=== PATIENT | female | born 1930 | race Caucasian/White ===

== ENCOUNTER 2018-04-02 19:20 | Emergency (ER) | payer OTHER ==
[2018-04-02 19:26] VITALS: BP 187/90; PULSE 67; TEMP 97.6; BMI 19.4
[2018-04-02] MEDS ORDERED: TETRACAINE 0.5% OPHTH SOLN 2 ML BOTTLE ONE (20:06)
--- NOTE | 2018-04-02 20:13 | PDOC ---
History of Present Illness - General Chief Complaint: Eye Problem Stated Complaint: EYE PROBLEM Time Seen by Provider: 04/02/18 19:34 History Source: Patient, Family - History of Present Illness Timing/Duration: other (this am) Past History - Past Medical History Allergies/Adverse Reactions: Allergies Allergy/AdvReac Type Severity Reaction Status Date / Time codeine Allergy Severe Vomiting Verified 05/17/16 07:09 Home Medications: Ambulatory Orders Ranitidine HCl [Zantac] 150 mg PO DAILY 04/22/16 ASA - 81 mg PO DAILY 05/14/16 Bimatoprost [Lumigan] 1 drop OU HS 05/14/16 Fish Oil/Borage/Flax/Om3,6,9 1 [[place] 3-6-9 1,200 mg Softgel] 1,200 mg PO DAILY 05/14/16 L.acidoph,Paracasei, B.lactis [Probiotic] 1 each PO DAILY 05/14/16 Prednisone 20 mg PO TID 05/14/16 Vitamins A and D [Vitamin A and D] 1 each PO DAILY 05/14/16 Ramipril 2.5 mg PO ASDIR 04/02/18 Anemia: No Asthma: No Cancer: No Cardiac Disorders: No CVA: No COPD: No CHF: No DVT: No Dementia: No Diabetes: No GI Disorders: Yes (HIATAL HERNIA, DIVERTICULOSIS) Disorders: No HTN: Yes Hypercholesterolemia: No Liver Disease: No Seizures: No Thyroid Disease: No Other medical history: temporal arrteritis - Surgical History Abdominal Surgery: No Appendectomy: No Cardiac Surgery: No Cholecystectomy: No Lung Surgery: No Neurologic Surgery: No Orthopedic Surgery: No - Immunization History Immunization Up to Date: Yes - Suicide/Smoking/Psychosocial Hx Smoking History: Never smoked Have you smoked in the past 12 months: No If you are a former smoker, when did you quit?: ; smoked briefly as a teenager; none sicnce Information on smoking cessation initiated: No Hx Alcohol Use: No Drug/Substance Use Hx: No Substance Use Type: None Review of Systems - Review of Systems HEENTM: Yes: Blurred Vision, Ear Pain. No: Tearing, Ear Discharge *Physical Exam - Vital Signs Last Vital Signs Temp Pulse Resp BP Pulse Ox 97.6 F 67 20 187/90 99 04/02/18 19:23 04/02/18 19:23 04/02/18 19:23 04/02/18 19:23 04/02/18 19:23 - Physical Exam General Appearance: Yes: Appropriately Dressed. 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 to both eyes, she began having blurry vision w/ eye pain to L eye only and sensation of foreign body. No photophobia, red eye, tearing, discharge, headache, dizziness, nausea or vomiting. No trauma to the eye. Pt appears uncomfortable in ED, no conjunc erythema, tearing , discharge, fb on lid eversion or hard eye on palpation. VA: 20/40 to OD, unable to make out letters to L eye. Unable to r/o abrasion 2/2 no fluorescein in ED and unable to check pressure given no tonopen. Will c/s optho at this time. Pt declines pain control 04/02/18 20:14 Case d/w Tomy of brush maker machine who works w/ patient's brush maker machine, Dr. Anne. States sxs less likely secondary to increased pressure alyssa given fb sensation aspect and more likely secondary to new refresh eyedrops or maybe dislodgment of punctate plugs. Recommending lubricating ointment at night, for example, GenTeal, and for patient to see her brush maker machine in a.m. Pt states GenTeal is [id number] and she can purchase this on her own. Discharged in stable condition w/ family *DC/Admit/Observation/Transfer Diagnosis at time of Disposition: Eye pain Qualifiers: Laterality: left Qualified Code(s): H57.12 - Ocular pain, left eye - Discharge Dispostion Disposition: HOME Condition at time of disposition: Good - Referrals Referrals: Tj Good MD [Primary Care Provider] - - Patient Instructions Additional Instructions: Your case wass discussed with Dr. Calle of ophthalmology who states symptoms might be due to refresh use or maybe dislodgment of your punctal plug. Recommends that you use a lubricating ointment such as GenTeal. Please use ointment right before bedtime. Please follow-up with your brush maker machine in the a.m. - Post Discharge Activity
== END 2018-04-02 20:24 | disposition home or self-care (01) ==
LOC: JERFT 19:20
DX: H57.12 Ocular pain, left eye (principal); M31.5 Giant cell arteritis with polymyalgia rheumatica; K21.9 Gastro-esophageal reflux disease without esophagitis; Z98.42 Cataract extraction status, left eye; Z98.41 Cataract extraction status, right eye
CPT/HCPCS: 99281-25

== ENCOUNTER 2019-01-24 11:45 | Inpatient (IN) | payer OTHER ==
--- NOTE | 2019-01-24 12:12 | PDOC ---
History of Present Illness - History of Present Illness Initial Comments: 01/24/19 15:17 The patient is a 88 year old female, with a significant past medical history of chronic constipation, GERD, Hiatal Hernia, Peptic Ulcer Disease, Anemia, Osteoarthritis, who presents to the emergency department via ems s/p syncopal episode sustaining injury to her face. 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 She states she was in the store while her car was being inspected when she developed a sudden onset of generalized weakness followed by syncope. She reports pain to her left hand, as well as pain and bleeding to her face. She denies any lower extremity pain. She denies any other complaints. The patient denies chest pain, shortness of breath, headache and dizziness. The patient denies fever, chills, nausea, vomit, diarrhea and constipation. The patient denies dysuria, frequency, urgency and hematuria. Allergies: codeine PCP - Dr. Good Cards: Dr. De Luna <Lucia Santiago - Last Filed: 01/24/19 15:17> - General History Source: Patient Exam Limitations: No Limitations <Areli Ocampo - Last Filed: 01/26/19 17:32> - General Chief Complaint: Syncope/Near Syncope Stated Complaint: SYNCOPE, FALL Time Seen by Provider: 01/24/19 12:12 Past History <Lucia Santiago - Last Filed: 01/24/19 15:17> - Past Medical History Anemia: No Asthma: No Cancer: No Cardiac Disorders: No CVA: No COPD: No CHF: No DVT: No Dementia: No Diabetes: No GI Disorders: Yes (HIATAL HERNIA, DIVERTICULOSIS) Disorders: No HTN: Yes Hypercholesterolemia: No Liver Disease: No Seizures: No Thyroid Disease: No - Surgical History Abdominal Surgery: No Appendectomy: No Cardiac Surgery: No Cholecystectomy: No Lung Surgery: No Neurologic Surgery: No Orthopedic Surgery: No - Immunization History Immunization Up to Date: Yes - Suicide/Smoking/Psychosocial Hx Smoking History: Unknown if ever smoked Have you smoked in the past 12 months: No If you are a former smoker, when did you quit?: ; smoked briefly as a teenager; none sicnce Hx Alcohol Use: No Drug/Substance Use Hx: No Substance Use Type: None <Areli Ocampo - Last Filed: 01/26/19 17:32> - Past Medical History Allergies/Adverse Reactions: Allergies Allergy/AdvReac Type Severity Reaction Status Date / Time codeine Allergy Severe Vomiting Verified 05/17/16 07:09 Home Medications: Ambulatory Orders Ramipril 2.5 mg PO ASDIR 04/02/18 Amlodipine Besylate [Norvasc -] 5 mg PO DAILY #30 tablet MDD 1 01/26/19 Brimonidine Tartrate [Alphagan 0.2% -] 1 drop OD BID #1 bot 01/26/19 Docusate Sodium [Colace -] 100 mg PO HS capsule 01/26/19 Pantoprazole Sodium [Protonix -] 40 mg PO DAILY tablet.ec 01/26/19 predniSONE [Deltasone -] 4 mg PO DAILY tablet 01/26/19 Review of Systems - Review of Systems Able to Perform ROS?: Yes Comments:: 01/24/19 15:18 CONSTITUTIONAL: Absent: fever, no chills, no fatigue EYES: Absent: visual changes ENT: (+) facial pain and bleeding. Absent: ear pain, no sore throat CARDIOVASCULAR: Absent: chest pain, no palpitations RESPIRATORY: Absent: cough, no SOB GASTROINTESTINAL: Absent: abdominal pain, no nausea, no vomiting, no constipation, no diarrhea GENITOURINARY: Absent: dysuria, no frequency, no hematuria MUSCULOSKELETAL: (+) left hand pain. Absent: back pain, no arthralgia, no myalgia SKIN: Absent: rash NEURO: Absent: headache <Lucia Santiago - Last Filed: 01/24/19 15:17> *Physical Exam - Vital Signs Last Vital Signs Temp Pulse Resp BP Pulse Ox 97.4 F L 65 20 223/103 H 99 01/24/19 11:47 01/24/19 11:47 01/24/19 11:47 01/24/19 11:47 01/24/19 11:47 - Physical Exam Comments: 01/24/19 15:18 GENERAL: The patient is in no acute distress. HEAD: (+) Facial Trauma. 3cm stellate skin tear to right lateral orbit. 8 mm abrasion to right forehead. 1 cm laceration to nasal bridge with ecchymosis and clear nasal deformity. 1cm lip laceration. EYES: PERRLA, EOMI, sclera anicteric, conjunctiva clear. ENT: (+) dried blood in nares. Ears normal, nares patent, oropharynx clear without exudates. Moist mucous membranes. NECK: Normal range of motion, supple without lymphadenopathy, JVD, or masses. LUNGS: Breath sounds equal, clear to auscultation bilaterally. No wheezes, and no crackles. HEART:Regular rate and rhythm, normal S1 and S2 without murmur, rub or gallop. ABDOMEN: Soft, nontender, normoactive bowel sounds. No guarding, no rebound. No masses palpable. EXTREMITIES: Normal range of motion, no edema. No clubbing or cyanosis. No erythema, or tenderness. NEUROLOGICAL: Cranial nerves II through XII grossly intact. Normal speech. No focal neurological deficits. MUSCULOSKELETAL: Back non-tender to palpation, no CVA tenderness SKIN: Warm, Dry, normal turgor, no rashes or lesions noted. <Lucia Santiago - Last Filed: 01/24/19 15:17> - Vital Signs Last Vital Signs Temp Pulse Resp BP Pulse Ox 97.4 F L 65 20 223/103 H 99 01/24/19 11:47 01/24/19 11:47 01/24/19 11:47 01/24/19 11:47 01/24/19 11:47 <Areli Ocampo - Last Filed: 01/26/19 17:32> ED Treatment Course - LABORATORY CBC & Chemistry Diagram: 01/24/19 13:00 01/24/19 13:00 - ADDITIONAL ORDERS Additional order review: Laboratory Results 01/24/19 01/24/19 01/24/19 13:00 13:00 13:00 PT with INR 11.60 INR 0.98 PTT (Actin FS) 31.9 Sodium 137 Potassium 4.0 Chloride 104 Carbon Dioxide 27 Anion Gap 7 L BUN 21 H Creatinine 0.9 Creat Clearance w eGFR 59.37 Random Glucose 77 Calcium 9.0 Magnesium 2.2 Total Bilirubin 0.6 AST 47 H ALT 35 Alkaline Phosphatase 64 Creatine Kinase 253 H Creatine Kinase Index 1.3 CK-MB (CK-2) 3.3 Troponin I < 0.02 Total Protein 7.5 Albumin 3.7 Blood Type O POSITIVE Antibody Screen Negative 01/24/19 13:00 RBC 4.41 MCV 96.1 H MCHC 33.2 RDW 15.5 D MPV 9.1 D Neutrophils % 65.8 Lymphocytes % 21.5 Monocytes % 8.3 Eosinophils % 3.2 D Basophils % 1.2 - Medications Given in the ED: ED Medications Discontinued Medications Generic Name Dose Route Start Last Admin Trade Name Henrietta PRN Reason Stop Dose Admin Acetaminophen 1,000 mg 01/24/19 12:15 01/24/19 13:28 Ofirmev Injection - IVPB 01/24/19 12:16 1,000 mg ONCE ONE Administration Diphtheria/Tetanus/Acell Pertussis 0.5 ml 01/24/19 12:14 01/24/19 13:29 Boostrix - IM 01/24/19 12:15 0.5 ml .ONCE ONE Administration Labetalol HCl 10 mg 01/24/19 12:15 01/24/19 13:29 Normodyne Injection - IVPUSH 01/24/19 12:16 10 mg ONCE ONE Administration <Lucia Santiago - Last Filed: 01/24/19 15:17> - LABORATORY CBC & Chemistry Diagram: 01/25/19 05:30 01/26/19 05:30 <Areli Ocampo - Last Filed: 01/26/19 17:32> Medical Decision Making - Medical Decision Making 01/24/19 15:[address] Patrick Gusman (Plastics) was called and the office staff assured me Dr. Gusman can see the patient in the hospital tomorrow morning. <Lucia Santiago - Last Filed: 01/24/19 15:17> - Critical Care Time Total Critical Care Time (minutes): 60 Critical Care Statement: The care of this patient involved high complexity decision making to prevent further life threatening deterioration of the patient 's condition and/or to evaluate & treat vital organ system(s) failure or risk of failure. - Medical Decision Making 01/24/19 12:34 EKG - NSR rate of 67 bpm, L axis deviation, no st elevation or depression, t waves upright 01/24/19 12:44 88 yo F s/p syncopal episode with facial trauma Will do: Labs Trop EKG Cardiac monitoring CT head, cervical spine, facial bones Will do xrays chest, hip, left hand BP severely elevated Will start by giving Labetolol 10mg IV Will re assess 01/24/19 13:58 Laboratory Tests 01/24/19 01/24/19 13:00 13:00 WBC 9.8 Hgb 14.1 Hct 42.4 D Plt Count 250 D INR 0.98 01/24/19 14:02 01/24/19 15:25 Laboratory Tests 01/24/19 13:00 Sodium 137 Potassium 4.0 Chloride 104 Carbon Dioxide 27 BUN 21 H Creatinine 0.9 Random Glucose 77 Creatine Kinase 253 H Creatine Kinase Index 1.3 CK-MB (CK-2) 3.3 Troponin I < 0.02 CT head: no intracranial hemorrhage CT facial bones: Nasal bone fracture with swelling CT cervical spine: no fractures Boostrix given Cervical collar removed Tylenol for pain Call placed to [facility] facial trauma attending - Recommended telling patient to AVOID blowing her nose, Ice to the area, head elevation, benadryl for congestion Call placed to Dr Gusman He will see this patient in house tomorrow AM Will admit to Dr Good service Dr Rodrigo massey (cardiology) 01/24/19 16:10 Pt was urinating and syncopized Fluids ordered PETTY Guzman requesting ICU (as pt had a recurrent pre-syncopal episode in the ER) ICU residents called for consultation Additional history obtained from pt daughters Pt recently returned from [place] Will CTA splint placed on left hand (prelim hand xray read as negative but pt continues to complain of pain) Clinical impression: Likely vasovagal syncope, initial presentation Facial trauma, initial presentation Nasal bone fracture, initial presentation Left hand injury, initial presentation <Areli Ocampo - Last Filed: 01/26/19 17:32> *DC/Admit/Observation/Transfer - Attestations Scribe Attestion: 01/24/19 15:19 Documentation prepared by Lucia Santiago, acting as medical resident for Areli Ocampo MD <Lucia Santiago - Last Filed: 01/24/19 15:17> - Discharge Dispostion Decision to Admit order: Yes <Areli cOampo - Last Filed: 01/26/19 17:32> Diagnosis at time of Disposition: Syncope and collapse, Hypertensive urgency Facial trauma Qualifiers: Encounter type: initial encounter Qualified Code(s): S09.93XA - Unspecified injury of face, initial encounter - Discharge Dispostion Disposition: HOME Condition at time of disposition: Stable
[2019-01-24] MEDS ORDERED: DIPHTH,PERTUSS(ACELL),TET 0.5 ML DISP.SYRIN IM ONE ×2 (12:14→13:19)
[2019-01-24] MEDS ORDERED: ACETAMINOPHEN 1000 MG/100 ML VIAL (NON FORMULARY) IVPB ONE (12:15)
[2019-01-24] MEDS ORDERED: LABETALOL HCL 5 MG/1 ML (100MG/20 ML VIAL) IVPUSH ONE (12:15)
[2019-01-24] MEDS ORDERED: LABETALOL HCL 5 MG/1 ML (200MG/40ML VIAL) IVPB ONE (13:18)
[2019-01-24] MEDS ORDERED: ACETAMINOPHEN INJECTION 100 ML IVPB ONE (13:18)
[2019-01-24 13:35] LABS: BASO % 1.2 % (0-2.0); EOS % 3.2 % (0-4.5); HEMATOCRIT 42.4 % (32.4-45.2); HEMOGLOBIN 14.1 GM/dL (10.7-15.3); LYMPH % 21.5 % (8-40); MCH 31.9 pg (25.7-33.7); MCHC 33.2 g/dl (32.0-36.0); MEAN CELL VOLUME 96.1 fl (80-96); MEAN PLT VOLUME 9.1 fl (7.5-11.1); MONO % 8.3 % (3.8-10.2); NEUT % 65.8 % (42.8-82.8); PLATELET COUNT 250 K/MM3 (134-434); RBC 4.41 M/mm3 (3.60-5.2); RDW 15.5 % (11.6-15.6); WHITE BLOOD COUNT 9.8 K/mm3 (4.0-10.0)
[2019-01-24 13:49] LABS: INR 0.98 (0.83-1.09); PROTHROMBIN TIME (PATIENT) 11.6 SEC (9.7-13.0)
[2019-01-24 13:51] LABS: ACTIVATED PTT 31.9 SECONDS (25.2-36.5)
[2019-01-24 14:02] LABS: ALBUMIN 3.7 g/dl (3.4-5.0); ALK PHOS 64 U/L (45-117); ANION GAP 7 MMOL/L (8-16); BILIRUBIN,TOTAL 0.6 mg/dL (0.2-1); BLOOD UREA NITROGEN 21 mg/dL (7-18); CHLORIDE 104 mmol/L (98-107); CO2 27 mmol/L (21-32); CREATININE 0.9 mg/dL (0.55-1.3); GLUCOSE,RANDOM 77 mg/dL (74-106); MAGNESIUM 2.2 mg/dL (1.8-2.4); SGOT/AST 47 U/L (15-37); SGPT/ALT 35 U/L (13-61); SODIUM 137 mmol/L (136-145); TOT PROT 7.5 g/dl (6.4-8.2)
--- NOTE | 2019-01-24 16:04 | CON.CARD ---
Cardiology Consult (text) - Consultation Consultation Note: cc: syncope hpi: 88 f hx htn, hld, pmr, here with syncope. Pt was standing today at [employer] and began to feel weak and fainted and fell to ground bumping her head/face. No cp, sob palp pnd orthopnea le edema. No hx syncope. Just got back from [place] trip, very jet-lagged, didnt eat/drink much this AM. Sees dr ibrahim for cardio. pmh: per hpi psh: nc social:no tob fam: no premature cad, scd ros: per hpi; facial pain s/p injury; occasional joint pain; all others normal meds: Ambulatory Orders Ranitidine HCl [Zantac] 150 mg PO DAILY 04/22/16 ASA - 81 mg PO DAILY 05/14/16 Bimatoprost [Lumigan] 1 drop OU HS 05/14/16 Fish Oil/Borage/Flax/Om3,6,9 1 [[place] 3-6-9 1,200 mg Softgel] 1,200 mg PO DAILY 05/14/16 L.acidoph,Paracasei, B.lactis [Probiotic] 1 each PO DAILY 05/14/16 Prednisone 20 mg PO TID 05/14/16 Vitamins A and D [Vitamin A and D] 1 each PO DAILY 05/14/16 Ramipril 2.5 mg PO ASDIR 04/02/18 pe: Vital Signs Period Temp Pulse Resp BP Sys/Huff Pulse Ox Last 24 Hr 97.4 F 65 20 223/103 99 nad no jvd rrr s1s2 no mrg cta bl nl eff aaox3 no le e/c/c abd nt nd pos bs no jaundice diaphoresis pos dp pt no carotid bruits Laboratory Last Values WBC 9.8 K/mm3 (4.0-10.0) 01/24/19 13:00 RBC 4.41 M/mm3 (3.60-5.2) 01/24/19 13:00 Hgb 14.1 GM/dL (10.7-15.3) 01/24/19 13:00 Hct 42.4 % (32.4-45.2) D 01/24/19 13:00 MCV 96.1 fl (80-96) H 01/24/19 13:00 MCH 31.9 pg (25.7-33.7) D 01/24/19 13:00 MCHC 33.2 g/dl (32.0-36.0) 01/24/19 13:00 RDW 15.5 % (11.6-15.6) D 01/24/19 13:00 Plt Count 250 K/MM3 (134-434) D 01/24/19 13:00 MPV 9.1 fl (7.5-11.1) D 01/24/19 13:00 Absolute Neuts (auto) 6.4 K/mm3 (1.5-8.0) 01/24/19 13:00 Neutrophils % 65.8 % (42.8-82.8) 01/24/19 13:00 Lymphocytes % 21.5 % (8-40) 01/24/19 13:00 Monocytes % 8.3 % (3.8-10.2) 01/24/19 13:00 Eosinophils % 3.2 % (0-4.5) D 01/24/19 13:00 Basophils % 1.2 % (0-2.0) 01/24/19 13:00 Nucleated RBC % 0 % (0-0) 01/24/19 13:00 PT with INR 11.60 SEC (9.7-13.0) 01/24/19 13:00 INR 0.98 (0.83-1.09) 01/24/19 13:00 PTT (Actin FS) 31.9 SECONDS (25.2-36.5) 01/24/19 13:00 Sodium 137 mmol/L (136-145) 01/24/19 13:00 Potassium 4.0 mmol/L (3.5-5.1) 01/24/19 13:00 Chloride 104 mmol/L (98-107) 01/24/19 13:00 Carbon Dioxide 27 mmol/L (21-32) 01/24/19 13:00 Anion Gap 7 MMOL/L (8-16) L 01/24/19 13:00 BUN 21 mg/dL (7-18) H 01/24/19 13:00 Creatinine 0.9 mg/dL (0.55-1.3) 01/24/19 13:00 Creat Clearance w eGFR 59.37 (>60) 01/24/19 13:00 Random Glucose 77 mg/dL (74-106) 01/24/19 13:00 Calcium 9.0 mg/dL (8.5-10.1) 01/24/19 13:00 Magnesium 2.2 mg/dL (1.8-2.4) 01/24/19 13:00 Total Bilirubin 0.6 mg/dL (0.2-1) 01/24/19 13:00 AST 47 U/L (15-37) H 01/24/19 13:00 ALT 35 U/L (13-61) 01/24/19 13:00 Alkaline Phosphatase 64 U/L (45-117) 01/24/19 13:00 Creatine Kinase 253 U/L (26-192) H 01/24/19 13:00 Creatine Kinase Index 1.3 % (0.0-5.0) 01/24/19 13:00 CK-MB (CK-2) 3.3 ng/mL (0.5-3.6) 01/24/19 13:00 Troponin I < 0.02 ng/ml (0.00-0.05) 01/24/19 13:00 Total Protein 7.5 g/dl (6.4-8.2) 01/24/19 13:00 Albumin 3.7 g/dl (3.4-5.0) 01/24/19 13:00 Blood Type O POSITIVE 01/24/19 13:00 Antibody Screen Negative 01/24/19 13:00 ecg: sr, nl intervals, no ischemic changes echo 08/2017: nl lv/rv, mild ar mibi 2011: no ischemia a/p: 88 f hx htn, hld, pmr, here with syncope. syncope: -seems vasovagal -no signs acs, chf, arrhythmia -check echo, carotids, ortho vitals -monitor on tele htn: -elevated in setting of facial trauma but was normal at office visit earlier today. likely related to acute pain/injury now. monitor on home ramipril for now. hld: -stable, on omega3 at home
[2019-01-24] MEDS ORDERED: SODIUM CHLORIDE 1,000 ML IV STA (16:08)
[2019-01-24] MEDS ORDERED: SODIUM CHLORIDE 250 ML IV STA (16:26)
--- NOTE | 2019-01-24 17:30 | HP ---
Admitting History and Physical - Primary Care Physician PCP: Tj Good - Admission Chief Complaint: Syncopal Episode History of Present Illness: Patient is an 88 y/o female with past medical history of HTN, HLD. Patient was brought to ER after having syncopal episode in public. Patient was at [facility] when all of a sudden she felt lightheaded and weak, she fainted and fell to ground. Patient did hit her head and face. Patient states she just came back from [place] recently and has been feeling jet-lagged since her return. On presentation in ER Hypertensive with BP 223/103, received Labetolol IVP and went down to 146/74. EKG is NSR with possible L atrial enlargement, troponin neg. In ER patient had syncopal episode lasting few seconds while using bed cummins. 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 No: AFIB, CHF Gastrointestinal: Yes: Constipation, GERD, Hiatal Hernia, Irritable Bowel Disease, Peptic Ulcer Disease Heme/Onc: Yes: Anemia Musculoskeletal: Yes: Osteoarthritis - Past Surgical History Past Surgical History: Yes: Colonoscopy, Upper Endoscopy (2014-colonoscopy and EGD- hiatal hernia and 4 polyps removed) - Smoking History Smoking history: Unknown if ever smoked Have you smoked in the past 12 months: No If you are a former smoker, when did you quit?: ; smoked briefly as a teenager; none sicnce - Alcohol/Substance Use Hx Alcohol Use: No - Social History Usual Living Arrangement: Yes: Alone ADL: Independent History of Recent Travel: No Home Medications - Allergies Allergies/Adverse Reactions: Allergies Allergy/AdvReac Type Severity Reaction Status Date / Time codeine Allergy Severe Vomiting Verified 05/17/16 07:09 - Home Medications Home Medications: Ambulatory Orders Ranitidine HCl [Zantac] 150 mg PO DAILY 04/22/16 ASA - 81 mg PO DAILY 05/14/16 Bimatoprost [Lumigan] 1 drop OU HS 05/14/16 Fish Oil/Borage/Flax/Om3,6,9 1 [[place] 3-6-9 1,200 mg Softgel] 1,200 mg PO DAILY 05/14/16 L.acidoph,Paracasei, B.lactis [Probiotic] 1 each PO DAILY 05/14/16 Prednisone 20 mg PO TID 05/14/16 Vitamins A and D [Vitamin A and D] 1 each PO DAILY 05/14/16 Ramipril 2.5 mg PO ASDIR 04/02/18 Family Disease History - Family Disease History Family Disease History: CA: Father (prostate ca), Mother ("old age leukemia"- likely CLL), Brother (lymphoma) Review of Systems - Review of Systems Constitutional: reports: Weakness Eyes: reports: No Symptoms HENT: reports: Other (facial pain) Neck: reports: No Symptoms Cardiovascular: reports: Other (dizziness) Respiratory: reports: No Symptoms Gastrointestinal: reports: No Symptoms Genitourinary: reports: No Symptoms Breasts: reports: No Symptoms Reported Musculoskeletal: reports: No Symptoms Integumentary: reports: Bruising (Face), Wound (nasal bridge R side of eye) Neurological: reports: Dizziness Endocrine: reports: No Symptoms Hematology/Lymphatic: reports: No Symptoms Psychiatric: reports: No Symptoms Physical Examination Vital Signs: Vital Signs Temperature 97.4 F L 01/24/19 11:47 Pulse Rate 82 01/24/19 16:14 Respiratory Rate 16 01/24/19 13:45 Blood Pressure 146/74 01/24/19 16:14 O2 Sat by Pulse Oximetry (%) 99 01/24/19 11:47 Constitutional: Yes: No Distress, Calm Eyes: Yes: Conjunctiva Clear Neck: Yes: Supple Cardiovascular: Yes: Bradycardia Respiratory: Yes: Regular, CTA Bilaterally Gastrointestinal: Yes: Normal Bowel Sounds, Soft Musculoskeletal: Yes: Muscle Weakness Extremities: Yes: WNL Edema: No Integumentary: Yes: Other (Ecchymosis to B/L periorbital area abrasion to R side of eye sutures noted to nasal bridge edema and ecchymosis to R upper lip) Wound/Incision: Yes: Sutures Intact, Open to air Neurological: Yes: Alert, Oriented Psychiatric: Yes: Alert, Oriented Labs: CBC, BMP 01/24/19 13:00 01/24/19 13:00 Imaging - Results Chest X-ray: Report Reviewed EKG: Report Reviewed Problem List - Problems (1) Facial trauma Assessment/Plan: -Plastic consult placed -pain management -neuro checks -fall precaution -Facial CTA shows R nasal bone fracture are seen with soft tissue swelling, R sided emphysematous changes, R sided facial periorbital soft tissue swelling extending to R frontal region Code(s): S09.93XA - UNSPECIFIED INJURY OF FACE, INITIAL ENCOUNTER Qualifiers: Encounter type: initial encounter Qualified Code(s): S09.93XA - Unspecified injury of face, initial encounter (2) Syncope and collapse Assessment/Plan: -cardio on board -admit to tele for cardiac monitoring -pending Echo, Carotid US, Chest CTA -neuro checks -fall precautions -IV hydration Code(s): R55 - SYNCOPE AND COLLAPSE Assessment/Plan see problem list dvt ppx
--- NOTE | 2019-01-24 17:44 | CONSULT ---
Consultation: Requesting Provider: PETTY Drake Consult Request: We have been asked to medically evaluate this patient for a syncopal episode. History of Present Illness: 88 y/o female presenting to [facility] ER after a syncopal episode [place] a gas station. Pt states she was standing unassisted when she suddenly felt lightheaded and dizzy. She fell face forward onto the ground striking her face. She does not recall the fall, but remembers people coming over to assist her. She did not try and ambulate afterward. Denies chest pain, palpitations, SOB, nausea/ vomiting or retrograde/anterograde amnesia. Noted pain and bleeding from face. EMS activated. Pt was placed in a c-collar and transported to the ED. Earlier in the morning, the pt was evaluated at her cardiologists clinic and reportedly told everything was normal. She then left the house again without eating or taking her daily medication thinking she would quickly have her car inspected. Pts adult daughters present at the bedside, and report the pt had a similar episode approx. 5 years ago while on vacation in [place]. Similarly, she had not been drinking or eating while [place] time on the beach. She was evaluated at a medical facility and diagnosed with dehydration. Afterward, the pt followed up with a neurologist, Dr. Ayala, who reportedly told her everything was normal. Of note, the pt returned from [place] on Tuesday (22 January 2019) from a multi week trip. In normal health while abroad. Wore compression stockings on plane. Denies calf pain or swelling. Denies SOB or chest pain. Denies personal or familial history of blood clots or bleeding disorders. At the time of this interview, the pt was complaining of pain and bruising to her face, generalized pain to the posterior aspect of her neck, and to her left hand. ED Course: - Second syncopal episode in ED witnessed by daughters. States pts face became glazed and she lost muscle tone for less than 1 minute while voiding on a bed cummins. No further trauma. - Facial CT revealed right nasal bone fractures with soft tissue swelling, right sided emphysematous changes. Soft tissue swelling was also noted to partially obscure the anterior nasal passages. ED Attending discussed the fracture with of the trauma service at [facility]. Transfer was not recommended. Dr. Gusman of plastics service was consulted and will evaluate the pt tomorrow. - Facial lacerations repaired with sutures. - Head and C-spine unremarkable for acute fracture or intracranial injury. - EKG unremarkable for ischemic changes. Initial troponin not elevated. - Evaluated by Dr. Shepard who recommended admission to telemetry for further workup. Suspected likely vasovagal episode. PCP: Dr. Florentino Kaiser Hx: - Travel: [place], returned 22 January 2019 - Tobacco: Denies - EtOH: Denies - Street Drugs: Denies Medical Hx: - Polymyalgia rheumatica, managed with Prednisone 3.5mg daily, discontinued Methotrexate approx. 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 - HTN Surgical Hx: - Pt denies past surgical history Review of Systems: In addition to that documented in the HPI above, the additional ROS was obtained : Constitutional: Denies fevers, chills, or recent illness Head: Denies acute vision or hearing changes, headaches ENMT: Denies sore throat, trouble swallowing, tongue biting CV: Denies chest pain, palpitations Resp: Denies SOB GI: Denies vomiting, abdominal pain, diarrhea, or bloody stools : Denies dysuria, increased urinary frequency, hematuria, or acute urinary incontinence MSK: Per HPI Skin: Denies new rashes Neuro: Denies new numbness or tingling or weakness Endocrine: Denies polyuria Heme: Denies bleeding or bruising Objective: Vital Signs - 24 hr 01/24/19 01/24/19 01/24/19 11:47 13:45 16:14 Temperature 97.4 F L Pulse Rate 65 Pulse Rate [ 82 Right side Supine] Respiratory 20 16 Rate Blood Pressure 223/103 H Blood Pressure 146/74 [Right side Supine] O2 Sat by Pulse 99 Oximetry (%) Physical Exam: Constitutional: Well-developed, well-nourished, nontoxic elderly adult female in no acute distress or obvious discomfort. Found semi-fowlers on hospital bed. Alert and oriented x4. Answered all questions appropriately and completely. Speech was non-labored, non-pressured. Head: Normocephalic. Lacerations to right orbit, lip, and nose sutured close. Nasal deformity. Ecchymosis to nose and right infraorbital facial region. Eyes: Pupils 2mm and PERRL bilaterally. Left lateral nystagmus. No vertical nystagmus. EOMI and nonpainful. Sclerae white. Conjunctiva moist and not injected. Ears: Hearing grossly intact. Nose: No nasal discharge. Throat: Oral cavity and pharynx normal. No inflammation, swelling, exudate, or lesions. Teeth and gingiva in good general condition. Neck: Supple, trachea is midline. Diffuse pain to posterior cervical neck without step off. Able to rotate laterally R and L. Cardiovascular / Chest: Regular rate and regular rhythm. No murmur, rubs, clicks, or gallops. Peripheral pulses: radial pulses full. No anterior chest wall pain. No pretibial edema. Respiratory: Breathing unlabored. Equal chest rise and fall. Clear to auscultation bilaterally. No stridor, no wheezing, no rhonchi. Gastrointestinal: abdomen is soft, non-tender, non-distended. No pulsatile masses. No overlying skin lesions or obvious signs of trauma. Neuro: Alert and oriented. Moving all four extremities spontaneously. No focal deficits. Cranial nerves intact. Sensation to all four extremities intact. Upper and lower extremities: proximal and distal strength 5/5. Farm Operator strength 5/ 5 - equal and symmetric. Plantar flexion and dorsiflexion 5/5. Skin: Warm and dry. MSK: Generalized pain to left thenar eminence without bruising or obvious deformity. Pelvis stable. Psych: Affect: appropriate. Mood: normal. Laboratory Results - last 24 hr 01/24/19 01/24/19 01/24/19 13:00 13:00 13:00 WBC 9.8 RBC 4.41 Hgb 14.1 Hct 42.4 D MCV 96.1 H MCH 31.9 D MCHC 33.2 RDW 15.5 D Plt Count 250 D MPV 9.1 D Absolute Neuts (auto) 6.4 Neutrophils % 65.8 Lymphocytes % 21.5 Monocytes % 8.3 Eosinophils % 3.2 D Basophils % 1.2 Nucleated RBC % 0 PT with INR 11.60 INR 0.98 PTT (Actin FS) 31.9 Sodium 137 Potassium 4.0 Chloride 104 Carbon Dioxide 27 Anion Gap 7 L BUN 21 H Creatinine 0.9 Creat Clearance w eGFR 59.37 Random Glucose 77 Calcium 9.0 Magnesium 2.2 Total Bilirubin 0.6 AST 47 H ALT 35 Alkaline Phosphatase 64 Creatine Kinase 253 H Creatine Kinase Index 1.3 CK-MB (CK-2) 3.3 Troponin I < 0.02 Total Protein 7.5 Albumin 3.7 Blood Type Antibody Screen 01/24/19 13:00 WBC RBC Hgb Hct MCV MCH MCHC RDW Plt Count MPV Absolute Neuts (auto) Neutrophils % Lymphocytes % Monocytes % Eosinophils % Basophils % Nucleated RBC % PT with INR INR PTT (Actin FS) Sodium Potassium Chloride Carbon Dioxide Anion Gap BUN Creatinine Creat Clearance w eGFR Random Glucose Calcium Magnesium Total Bilirubin AST ALT Alkaline Phosphatase Creatine Kinase Creatine Kinase Index CK-MB (CK-2) Troponin I Total Protein Albumin Blood Type O POSITIVE Antibody Screen Negative Active Medications Generic Name Dose Route Start Last Admin Trade Name Freq PRN Reason Stop Dose Admin Heparin Sodium (Porcine) 5,000 unit 01/24/19 22:00 Heparin - SQ BID MITCH Sodium Chloride 1,000 mls @ 100 mls/hr 01/24/19 16:08 Normal Saline - IV 01/25/19 02:07 ASDIR STA Pantoprazole Sodium 40 mg 01/25/19 10:00 Protonix - PO DAILY MITCH Prednisone 4 mg 01/25/19 10:00 Deltasone - PO DAILY MITCH Ramipril 2.5 mg 01/25/19 10:00 Altace - PO DAILY MITCH ASSESSMENT/PLAN: 88 year old female with Polymyalgia rheumatica, Temporal arteritis, 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 ICU Consulted for two syncopal episodes. Neuro (& Psych): - 2x witnessed syncopal episodes. Suspect likely vasovagal with prodromal symptoms in the setting of decreased PO intake and jet lag. Low suspicion for TX given EKG and negative trop. Low suspicion for seizure without tongue biting or loss of bowel/bladder. Low suspicion for arrhythmia without history of similar. Low suspicion for intracranial hemorrhage with unremarkable Head CT. Low suspicion for PE, pt to undergo CTA in ED for further evaluation. - Polymyalgia rheumatica reportedly stable on daily prednisone - Temporal arteritis reportedly stable on daily prednisone Cardiovascular: - HTN on arrival. Suspect secondary to not taking morning antihypertensive medication. - Normal Echo [place] [address] Lindsay consult note. - Further recommendations per cardiology service. Pulm / Resp: - Stable on room air. No h/o of pulmonary disease. Hematologic: - No anemia Infectious Disease: - No leukocytosis - No fever - No reported infectious symptoms Musculoskeletal: - R nasal bone fracture. No respiratory compromise. To be evaluated by plastics service tomorrow. Dispo: No indication for ICU admission at this time. Will continue to follow the pt while awaiting CTA results. Would reconsider ICU admission if PE is present. Thank you for this consultative opportunity. Ian Mosquera MD, PGY1 ICU Consult Service Visit type - Emergency Visit Emergency Visit: No - New Patient This patient is new to me today: Yes Date on this admission: 01/24/19 - Critical Care Critical Care patient: Yes Total Critical Care Time (in minutes): 38 Critical Care Statement: The care of this patient involved high complexity decision making to prevent further life threatening deterioration of the patient 's condition and/or to evaluate & treat vital organ system(s) failure or risk of failure.
[2019-01-24] MEDS ORDERED: HEPARIN NA (PORCINE) 5,000 UNITS/ML 1ML VIAL ONE (23:46)
[2019-01-24] MEDS: HEPARIN NA (PORCINE) 5,000 UNITS/ML 1ML VIAL SQ SCH (23:52)
[2019-01-25] MEDS ORDERED: ACETAMINOPHEN 325 MG TABLET (FP) PO ONE (00:52)
[2019-01-25] MEDS ORDERED: NITROGLYCERIN 2% OINTMENT - 1GM PACKET TD ONE (03:12)
[2019-01-25 05:55] LABS: BASO % 0.7 % (0-2.0); EOS % 2.7 % (0-4.5); HEMATOCRIT 36.7 % (32.4-45.2); HEMOGLOBIN 12.5 GM/dL (10.7-15.3); LYMPH % 21.1 % (8-40); MCH 32.4 pg (25.7-33.7); MEAN CELL VOLUME 95.4 fl (80-96); MEAN PLT VOLUME 8.9 fl (7.5-11.1); MONO % 8.3 % (3.8-10.2); NEUT % 67.2 % (42.8-82.8); PLATELET COUNT 212 K/MM3 (134-434); RBC 3.85 M/mm3 (3.60-5.2); RDW 14.7 % (11.6-15.6); WHITE BLOOD COUNT 9.7 K/mm3 (4.0-10.0)
[2019-01-25 06:28] LABS: N-TERMINAL BNP 159.5 pg/ml (5-450)
[2019-01-25 06:29] LABS: ALBUMIN 3.1 g/dl (3.4-5.0); ALK PHOS 56 U/L (45-117); ANION GAP 6 MMOL/L (8-16); BILIRUBIN,TOTAL 0.6 mg/dL (0.2-1); BLOOD UREA NITROGEN 14 mg/dL (7-18); CALCIUM 8.4 mg/dL (8.5-10.1); CHLORIDE 107 mmol/L (98-107); CO2 25 mmol/L (21-32); CREATININE 0.8 mg/dL (0.55-1.3); GLUCOSE,RANDOM 90 mg/dL (74-106); MAGNESIUM 1.9 mg/dL (1.8-2.4); PHOSPHOROUS 3.2 mg/dL (2.5-4.9); POTASSIUM 3.3 mmol/L (3.5-5.1); SGOT/AST 26 U/L (15-37); SGPT/ALT 26 U/L (13-61); SODIUM 139 mmol/L (136-145); TOT PROT 6.2 g/dl (6.4-8.2)
[2019-01-25] MEDS ORDERED: PT OWN MED DRAWER 7, Y5N ONE ×2 (10:26→21:08)
[2019-01-25] MEDS: PANTOPRAZOLE 40 MG TABLET (FP) PO SCH (10:33)
[2019-01-25] MEDS: ACETAMINOPHEN 500 MG TABLET (FP) PO PRN ×3 (10:33→23:26)
[2019-01-25] MEDS: amLODIPine BESYLATE 5 MG TABLET (FP) PO SCH (10:33)
[2019-01-25] MEDS: RAMIPRIL 2.5 MG CAPSULE (FP) PO SCH (10:33)
[2019-01-25] MEDS: HEPARIN NA (PORCINE) 5,000 UNITS/ML 1ML VIAL SQ SCH ×2 (11:22→21:45)
[2019-01-25] MEDS ORDERED: POTASSIUM CHLORIDE TABS 20 MEQ TABLET.ER (FP) PO ONE (11:30)
--- NOTE | 2019-01-25 11:36 | PN ---
Progress Note (short form) - Note Progress Note: s: no cp sob palps dizzy o: Vital Signs Period Temp Pulse Resp BP Sys/Huff Pulse Ox Last 24 Hr 97.1 F-98.5 F 64-88 16-20 139-223/70-103 99-100 nad no jvd rrr s1s2 no mrg cta bl nl eff aaox3 no le e/c/c abd nt nd pos bs no jaundice diaphoresis Current Medications Generic Name Dose Route Start Last Admin Trade Name Freq PRN Reason Stop Dose Admin Acetaminophen 500 mg 01/25/19 03:13 01/25/19 10:33 Tylenol - PO 500 mg Q6H PRN Administration PAIN LEVEL 1-5 Amlodipine Besylate 5 mg 01/25/19 10:00 01/25/19 10:33 Norvasc - PO 5 mg DAILY MITCH Administration Brimonidine Tartrate 1 drop 01/25/19 22:00 Alphagan 0.2% - OD BID MITCH Heparin Sodium (Porcine) 5,000 unit 01/24/19 22:00 01/25/19 11:22 Heparin - SQ 5,000 unit BID MITCH Administration Pantoprazole Sodium 40 mg 01/25/19 10:00 01/25/19 10:33 Protonix - PO 40 mg DAILY MITCH Administration Prednisone 4 mg 01/25/19 10:00 Deltasone - PO DAILY MITCH Ramipril 2.5 mg 01/25/19 10:00 01/25/19 10:33 Altace - PO 2.5 mg DAILY MITCH Administration CBC, BMP 01/25/19 05:30 01/25/19 05:30 ecg: sr, nl intervals, no ischemic changes echo 08/2017: nl lv/rv, mild ar mibi 2011: no ischemia tele: sr a/p: 88 f hx htn, hld, pmr, here with syncope. syncope: -seems vasovagal -no signs acs, chf, arrhythmia -tele benign -carotids w/o sig stenosis -echo pending, if benign then no further cardiac testing needed at this time htn: -remains elevated. cont home reyes. will add norvasc today as well. hld: -stable, on omega3 at home
--- NOTE | 2019-01-25 11:57 | PN ---
Progress Note, Physician Chief Complaint: patient was a little dizzy standing up going to bathroom today per daughter - Current Medication List Current Medications: Active Medications Acetaminophen (Tylenol -) 500 mg PO Q6H PRN PRN Reason: PAIN LEVEL 1-5 Last Admin: 01/25/19 10:33 Dose: 500 mg Amlodipine Besylate (Norvasc -) 5 mg PO DAILY [facility] Last Admin: 01/25/19 10:33 Dose: 5 mg Brimonidine Tartrate (Alphagan 0.2% -) 1 drop OD BID [facility] Heparin Sodium (Porcine) (Heparin -) 5,000 unit SQ BID [facility] Last Admin: 01/25/19 11:22 Dose: 5,000 unit Pantoprazole Sodium (Protonix -) 40 mg PO DAILY [facility] Last Admin: 01/25/19 10:33 Dose: 40 mg Prednisone (Deltasone -) 4 mg PO DAILY [facility] Ramipril (Altace -) 2.5 mg PO DAILY [facility] Last Admin: 01/25/19 10:33 Dose: 2.5 mg - Objective Vital Signs: Vital Signs Temperature 97.8 F 01/25/19 09:14 Pulse Rate 77 01/25/19 09:14 Respiratory Rate 20 01/25/19 09:14 Blood Pressure 139/76 01/25/19 09:14 O2 Sat by Pulse Oximetry (%) 99 01/25/19 09:00 Constitutional: Yes: Calm HENT: Yes: Other (facial ecchymosis and swelling noted right side skin tear noted nasal bridge stitches noted) Cardiovascular: Yes: Regular Rate and Rhythm, S1, S2 Respiratory: Yes: CTA Bilaterally Gastrointestinal: Yes: Normal Bowel Sounds, Soft Musculoskeletal: Yes: Other (left wrist and hand swelling able to flex the fingers) Edema: No Labs: CBC, BMP 01/25/19 05:30 01/25/19 05:30 INR, PTT INR 0.98 (0.83-1.09) 01/24/19 13:00 Problem List - Problems (1) Facial trauma Assessment/Plan: ortho dvt ppx Code(s): S09.93XA - UNSPECIFIED INJURY OF FACE, INITIAL ENCOUNTER Qualifiers: Encounter type: initial encounter Qualified Code(s): S09.93XA - Unspecified injury of face, initial encounter (2) Hypertensive urgency Assessment/Plan: BP much better controlled Code(s): I16.0 - HYPERTENSIVE URGENCY (3) Syncope and collapse Assessment/Plan: echo pending carotid doppler done cardiology on board Code(s): R55 - SYNCOPE AND COLLAPSE (4) Hypokalemia Assessment/Plan: repleted Code(s): E87.6 - HYPOKALEMIA
--- NOTE | 2019-01-25 12:40 | CONSULT ---
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 No: AFIB, CHF Gastrointestinal: Yes: Constipation, GERD, Hiatal Hernia, Irritable Bowel Disease, Peptic Ulcer Disease ...: No Musculoskeletal: Yes: Osteoarthritis - Past Surgical History Past Surgical History: Yes: Colonoscopy, Upper Endoscopy (2014-colonoscopy and EGD- hiatal hernia and 4 polyps removed) - Alcohol/Substance Use Hx Alcohol Use: No - Smoking History Smoking history: Never smoked Have you smoked in the past 12 months: No If you are a former smoker, when did you quit?: ; smoked briefly as a teenager; none sicnce - Social History Usual Living Arrangement: With Child ADL: Independent History of Recent Travel: No Home Medications - Allergies Allergies/Adverse Reactions: Allergies Allergy/AdvReac Type Severity Reaction Status Date / Time codeine Allergy Severe Vomiting Verified 05/17/16 07:09 - Home Medications Home Medications: Ambulatory Orders Prednisone 3.5 mg PO TID 05/14/16 Ramipril 2.5 mg PO ASDIR 04/02/18 Family Disease History - Family Disease History Family Disease History: CA: Father (prostate ca), Mother ("old age leukemia"- likely CLL), Brother (lymphoma) Physical Exam Vital Signs: Vital Signs Temperature 97.8 F 01/25/19 09:14 Pulse Rate 77 01/25/19 09:14 Respiratory Rate 20 01/25/19 09:14 Blood Pressure 139/76 01/25/19 09:14 O2 Sat by Pulse Oximetry (%) 99 01/25/19 09:00 Labs: CBC, BMP 01/25/19 05:30 01/25/19 05:30 Assessment/Plan 88 year old woman one-day status post fall with multiple facial injuries. Multiple facial bruises with ad-orbital ecchymosis. Skin tear right temporal region. Closed laceration over nasal dorsum. Left wrist splinted. Facial trauma all looks like results of blunt injury and ecchymosis which should resolve. Nasal dorsum laceration sutured and clean. No open wounds left wrist and no fractures. Mildly ecchymotic. Splint removed. No treatment necessary. Would encourage ambulation and head elevation while in bed. Happy to see patient as an outpatient for suture removal.
--- NOTE | 2019-01-25 12:48 | PN ---
Teaching Attending Note Name of Resident: Ian Mosquera ATTENDING PHYSICIAN STATEMENT I saw and evaluated the patient. I reviewed the resident's note and discussed the case with the resident. I agree with the resident's findings and plan as documented. SUBJECTIVE: No further syncopal episodes. Echocardiogram pending. CT chest reviewed, unremarkable. No chest pain or shortness of breath. OBJECTIVE: Vital Signs Period Temp Pulse Resp BP Sys/Huff Pulse Ox Last 24 Hr 97.1 F-98.5 F 64-88 16-20 139-190/70-95 99-100 Intake & Output 01/22/19 01/23/19 01/24/19 01/25/19 23:59 23:59 23:59 23:59 Weight 45.359 kg 47.446 kg Gen: NAD at rest, facial ecchymoses Heart: RRR Lung: decreased breath sounds at the bases Abd: soft, nontender Ext: no edema CBC, BMP 01/25/19 05:30 01/25/19 05:30 Active Medications Acetaminophen (Tylenol -) 500 mg PO Q6H PRN PRN Reason: PAIN LEVEL 1-5 Last Admin: 01/25/19 10:33 Dose: 500 mg Amlodipine Besylate (Norvasc -) 5 mg PO DAILY [facility] Last Admin: 01/25/19 10:33 Dose: 5 mg Brimonidine Tartrate (Alphagan 0.2% -) 1 drop OD BID [facility] Docusate Sodium (Colace -) 100 mg PO HS [facility] Heparin Sodium (Porcine) (Heparin -) 5,000 unit SQ BID [facility] Last Admin: 01/25/19 11:22 Dose: 5,000 unit Pantoprazole Sodium (Protonix -) 40 mg PO DAILY [facility] Last Admin: 01/25/19 10:33 Dose: 40 mg Prednisone (Deltasone -) 4 mg PO DAILY [facility] Ramipril (Altace -) 2.5 mg PO DAILY [facility] Last Admin: 01/25/19 10:33 Dose: 2.5 mg ASSESSMENT AND PLAN: Syncope s/p Fall HTN Hyperlipidemia PMR - f/u echocardiogram - telemetry monitoring - replete lytes - PO as tolerated - DVT prophylaxis
[2019-01-25 13:06] VITALS: BMI 19.6
[2019-01-25] MEDS: predniSONE 1 MG TABLET (FP) PO SCH (14:00)
--- NOTE | 2019-01-25 14:21 | ECHO ---
Name: LINETTE SERRANO Exam:Adult Echocardiogram Study Date: 01/25/2019 01:20 PM Age: 88 yrs Reason For Study: SYNCOPE Height: 61 in Weight: 104 lb BSA: 1.4 m2 MMode/2D Measurements & Calculations IVSd: 0.90 cm Ao root diam: 3.1 cm LVIDd: 4.2 cm LA dimension: 3.3 cm LVIDs: 2.3 cm ACS: 1.6 cm LVPWd: 0.81 cm IVSs: 1.3 cm LVPWs: 1.6 cm EDV(Teich): 77.6 ml ESV(Teich): 18.1 ml Doppler Measurements & Calculations MV E max nadeem: 57.9 cm/sec Ao V2 max: 164.7 cm/sec MV A max nadeem: 99.9 cm/sec Ao max P.9 mmHg MV E/A: 0.58 Ao V2 mean: 128.0 cm/sec Ao mean P.9 mmHg Ao V2 VTI: 34.6 cm Med Peak E' Nadeem: 7.0 cm/sec Med E/e': 8.3 Lat Peak E' Nadeem: 7.6 cm/sec Lat E/e': 7.7 Procedure A complete two-dimensional transthoracic echocardiogram was performed (2D, M-mode, Doppler and color flow Doppler). Left Ventricle The left ventricular size, thickness and function are normal. The left ventricular ejection fraction is normal. Ejection Fraction = 60-65%. The left ventricular wall motion is normal. Right Ventricle The right ventricle is normal in size and function. Atria Normal left and right atrial size and function. Mitral Valve There is no mitral regurgitation noted. Tricuspid Valve There is trace tricuspid regurgitation. There was insufficient TR detected to calculate RV systolic p ressure. Aortic Valve No hemodynamically significant valvular aortic stenosis. No aortic regurgitation is present. Pulmonic Valve There is no pulmonic valvular regurgitation. Great Vessels The aortic root is normal size. Pericardium/Pleura There is no pericardial effusion. Interpretation Summary The left ventricular size, thickness and function are normal The right ventricle is normal in size and function. There is trace tricuspid regurgitation. MD Vickey Shepard 01/25/2019 02:20 PM
--- NOTE | 2019-01-25 15:56 | CONSULT ---
Consult Consult Specialty:: orthopedics - History of Present Illness History of Present Illness: 88y/o female c/o of left wrist pain s/p fall yesterday. She states she was standing when she lost consciousness and woke up on the ground. She was taken to the ER and had x-rays of the wrist. She was placed into a splint. She continues to have pain at the base of the thumb and in the hand. She was taken out of the splint this AM and is feeling a little better. No other associated, aggravating or reliving factors. 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 No: AFIB, CHF Gastrointestinal: Yes: Constipation, GERD, Hiatal Hernia, Irritable Bowel Disease, Peptic Ulcer Disease ...: No Musculoskeletal: Yes: Osteoarthritis - Past Surgical History Past Surgical History: Yes: Colonoscopy, Upper Endoscopy (2013-colonoscopy and EGD- hiatal hernia and 4 polyps removed) - Alcohol/Substance Use Hx Alcohol Use: No - Smoking History Smoking history: Never smoked Have you smoked in the past 12 months: No If you are a former smoker, when did you quit?: ; smoked briefly as a teenager; none sicnce - Social History Usual Living Arrangement: With Child ADL: Independent History of Recent Travel: No Home Medications - Allergies Allergies/Adverse Reactions: Allergies Allergy/AdvReac Type Severity Reaction Status Date / Time codeine Allergy Severe Vomiting Verified 05/17/16 07:09 - Home Medications Home Medications: Ambulatory Orders Prednisone 3.5 mg PO TID 05/14/16 Ramipril 2.5 mg PO ASDIR 04/02/18 Family Disease History - Family Disease History Family Disease History: CA: Father (prostate ca), Mother ("old age leukemia"- likely CLL), Brother (lymphoma) Review of Systems - Review of Systems Constitutional: reports: No Symptoms Eyes: reports: No Symptoms HENT: reports: No Symptoms Neck: reports: No Symptoms Cardiovascular: reports: No Symptoms Respiratory: reports: No Symptoms Gastrointestinal: reports: No Symptoms Genitourinary: reports: No Symptoms Breasts: reports: No Symptoms Reported Musculoskeletal: reports: No Symptoms Integumentary: reports: No Symptoms Neurological: reports: No Symptoms Endocrine: reports: No Symptoms Hematology/Lymphatic: reports: No Symptoms Psychiatric: reports: No Symptoms Physical Exam Vital Signs: Vital Signs Temperature 97.7 F 01/25/19 14:30 Pulse Rate 90 01/25/19 14:30 Respiratory Rate 18 01/25/19 14:30 Blood Pressure 137/65 01/25/19 14:30 O2 Sat by Pulse Oximetry (%) 99 01/25/19 09:00 Constitutional: Yes: Well Nourished, No Distress, Calm HENT: Yes: Other (Contusions/edema of face. laceration along nose.) Extremities: Yes: Other (Left wrist: Mild edema along the basal joint. No erythema or ecchymosis. mild TTP along the basal joint. No TTP along the wrist or remainder of the hand. Flexor and extensor tendons are intact. Full ROM of the fingers. No instablity. Negative finklesteins test. Negative grind test. Compartments soft. NVID.) Labs: CBC, BMP 01/25/19 05:30 01/25/19 05:30 Imaging - Results X-ray: Report Reviewed, Image Reviewed (No fx or dislocaitons. Mild-moderated Basal joint arthosis) Assessment/Plan #1 Left basal joint sprain -Discussed todays findings and treatment options with the patient. Recommend rest and activity restrictions for the hand for the next few weeks. She may take Tylenol for the pain. if she is not improving over the next few weeks she will f/u as outpatient. All questions answered.
--- NOTE | 2019-01-25 16:37 | EKG ---
Test Reason : Blood Pressure : / mmHG Vent. Rate : 067 BPM Atrial Rate : 067 BPM P-R Int : 174 ms QRS Dur : 082 ms QT Int : 416 ms P-R-T Axes : 076 -32 047 degrees QTc Int : 439 ms NORMAL SINUS RHYTHM POSSIBLE LEFT ATRIAL ENLARGEMENT LEFT AXIS DEVIATION NONSPECIFIC ST ABNORMALITY ABNORMAL ECG WHEN COMPARED WITH ECG OF 23-APR-2016 08:37, NO SIGNIFICANT CHANGE WAS FOUND Confirmed by DIONE FORDE, DANGELO ([id number]) on 01/25/2019 4:37:46 PM Referred By: Confirmed By:DANGELO PARHAM MD
[2019-01-25] MEDS: BRIMONIDINE TARTRATE 0.2% OPHTHALMIC 5 ML BOTTLE OD SCH (21:45)
[2019-01-25] MEDS ORDERED: DOCUSATE SODIUM 100 MG CAPSULE (FP) PO SCH (22:00)
[2019-01-26] MEDS: ACETAMINOPHEN 500 MG TABLET (FP) PO PRN (05:18)
[2019-01-26 05:23] VITALS: BP 145/79; PULSE 65; TEMP 97.8
[2019-01-26 06:41] LABS: ALBUMIN 2.9 g/dl (3.4-5.0); ALK PHOS 50 U/L (45-117); ANION GAP 5 MMOL/L (8-16); BILIRUBIN,TOTAL 0.5 mg/dL (0.2-1); BLOOD UREA NITROGEN 15 mg/dL (7-18); CALCIUM 8.2 mg/dL (8.5-10.1); CHLORIDE 108 mmol/L (98-107); CO2 24 mmol/L (21-32); CREATININE 0.9 mg/dL (0.55-1.3); GLUCOSE,RANDOM 89 mg/dL (74-106); SGOT/AST 35 U/L (15-37); SGPT/ALT 34 U/L (13-61); SODIUM 137 mmol/L (136-145); TOT PROT 5.8 g/dl (6.4-8.2)
[2019-01-26] MEDS: BRIMONIDINE TARTRATE 0.2% OPHTHALMIC 5 ML BOTTLE OD SCH (09:56)
[2019-01-26] MEDS: PANTOPRAZOLE 40 MG TABLET (FP) PO SCH (09:57)
[2019-01-26] MEDS: predniSONE 1 MG TABLET (FP) PO SCH (09:57)
[2019-01-26] MEDS: HEPARIN NA (PORCINE) 5,000 UNITS/ML 1ML VIAL SQ SCH (09:57)
[2019-01-26] MEDS: RAMIPRIL 2.5 MG CAPSULE (FP) PO SCH (09:57)
[2019-01-26] MEDS: amLODIPine BESYLATE 5 MG TABLET (FP) PO SCH (09:57)
--- NOTE | 2019-01-26 11:40 | PN ---
Progress Note (short form) - Note Progress Note: s: no cp sob palps dizzy o: Vital Signs Period Temp Pulse Resp BP Sys/Huff Pulse Ox Last 24 Hr 97.6 F-98.0 F 56-90 18-20 128-187/65-96 95 nad no jvd rrr s1s2 no mrg cta bl nl eff aaox3 no le e/c/c abd nt nd pos bs no jaundice diaphoresis Current Medications Generic Name Dose Route Start Last Admin Trade Name Freq PRN Reason Stop Dose Admin Acetaminophen 500 mg 01/25/19 03:13 01/26/19 05:18 Tylenol - PO 500 mg Q6H PRN Administration PAIN LEVEL 1-5 Amlodipine Besylate 5 mg 01/25/19 10:00 01/26/19 09:57 Norvasc - PO 5 mg DAILY MITCH Administration Brimonidine Tartrate 1 drop 01/25/19 22:00 01/26/19 09:56 Alphagan 0.2% - OD 1 drop BID MITCH Administration Docusate Sodium 100 mg 01/25/19 22:00 01/25/19 21:45 Colace - PO Not Given HS MITCH Heparin Sodium (Porcine) 5,000 unit 01/24/19 22:00 01/26/19 09:57 Heparin - SQ 5,000 unit BID MITCH Administration Pantoprazole Sodium 40 mg 01/25/19 10:00 01/26/19 09:57 Protonix - PO 40 mg DAILY MITCH Administration Prednisone 4 mg 01/25/19 10:00 01/26/19 09:57 Deltasone - PO 4 mg DAILY MITCH Administration Ramipril 2.5 mg 01/25/19 10:00 01/26/19 09:57 Altace - PO 2.5 mg DAILY MITCH Administration CBC, BMP 01/25/19 05:30 01/26/19 05:30 ecg: sr, nl intervals, no ischemic changes echo 08/2017: nl lv/rv, mild ar echo 01/2019: nl lv/rv, no sig valve path mibi 2011: no ischemia tele: sr a/p: 88 f hx htn, hld, pmr, here with syncope. syncope: -seems vasovagal, resolved with ivfs -no signs acs, chf, arrhythmia -tele, echo benign -carotids w/o sig stenosis -no further cardiac testing needed at this time htn: -controlled on reyes and ccb, cont same for now hld: -stable, on omega3 at home cardiac mason ok for dc
--- NOTE | 2019-01-26 12:02 | DS ---
Physical Examination Vital Signs: Vital Signs Temperature 97.8 F 01/26/19 05:22 Pulse Rate 65 01/26/19 05:22 Respiratory Rate 20 01/26/19 05:22 Blood Pressure 145/79 01/26/19 05:22 O2 Sat by Pulse Oximetry (%) 95 01/25/19 21:00 Constitutional: Yes: Calm, Thin HENT: Yes: Other (facial ecchymosis improving nasal septum sutures sutures upper lip noted) Cardiovascular: Yes: Regular Rate and Rhythm, S1, S2 Respiratory: Yes: CTA Bilaterally Gastrointestinal: Yes: Normal Bowel Sounds, Soft Musculoskeletal: Yes: Other (shoulder nad wrist pain on left side) Labs: CBC, BMP 01/25/19 05:30 01/26/19 05:30 Discharge Summary Reason For Visit: HYPERTENSIVE URGENCY,SYNCOPE AND COLLAPSE Current Active Problems Facial trauma (Acute) Hypertensive urgency (Acute) Hypokalemia (Acute) Syncope and collapse (Acute) Hospital Course: Primary Care Physician PCP: Tj Good - Admission Chief Complaint: Syncopal Episode History of Present Illness: Patient is an 88 y/o female with past medical history of HTN, HLD. Patient was brought to ER after having syncopal episode in public. Patient was at [facility] when all of a sudden she felt lightheaded and weak, she fainted and fell to ground. Patient did hit her head and face. Patient states she just came back from [place] recently and has been feeling jet-lagged since her return. On presentation in ER Hypertensive with BP 223/103, received Labetolol IVP and went down to 146/74. EKG is NSR with possible L atrial enlargement, troponin neg. In ER patient had syncopal episode lasting few seconds while using bed cummins. seen by facial and hand ortho dc home Condition: Stable - Instructions Referrals: Patrick Gusman MD [Staff Physician] - 1 Week Disposition: HOME - Home Medications Comprehensive Discharge Medication List: Ambulatory Orders Prednisone 3.5 mg PO TID 05/14/16 Ramipril 2.5 mg PO ASDIR 04/02/18
== END 2019-01-26 13:57 | disposition home or self-care (01) | DRG 312 ==
LOC: JER 11:45 → JERBED 12:51 → J4S 01-25 03:04
PROVIDERS: ADMIT Family Medicine; ATTEND Family Medicine
PROC: 2W3FX1Z Immobilization of Left Hand using Splint (ICD-10-PCS; principal; 2019-01-24)
PROC: 0CQ0XZZ Repair Upper Lip, External Approach (ICD-10-PCS; 2019-01-25)
PROC: 0HQ1XZZ Repair Face Skin, External Approach (ICD-10-PCS; 2019-01-25)
DX: R55 Syncope and collapse (principal); S05.41XA Penetrating wound of orbit with or without foreign body, right eye, initial encounter; I16.0 Hypertensive urgency; I10 Essential (primary) hypertension; E87.6 Hypokalemia; S02.2XXA Fracture of nasal bones, initial encounter for closed fracture; S62.102A Fracture of unspecified carpal bone, left wrist, initial encounter for closed fracture; W01.0XXA Fall on same level from slipping, tripping and stumbling without subsequent striking against object, initial encounter; S01.511A Laceration without foreign body of lip, initial encounter; S01.21XA Laceration without foreign body of nose, initial encounter; Y92.524 Gas station as the place of occurrence of the external cause; Y93.89 Activity, other specified; Y99.8 Other external cause status; M31.6 Other giant cell arteritis; M35.3 Polymyalgia rheumatica; K21.9 Gastro-esophageal reflux disease without esophagitis; K59.00 Constipation, unspecified; D64.9 Anemia, unspecified; M19.90 Unspecified osteoarthritis, unspecified site; Z87.11 Personal history of peptic ulcer disease; H35.30 Unspecified macular degeneration
CPT/HCPCS: 36415; 70450-TC; 70486-TC; 71045-TC-FY; 71275-TC; 72125-TC; 73130-TC-LT-FY; 73502-TC-RT-FY; 73523-TC-FY; 80053; 80061; 82550; 82553; 82962; 83721; 83735; 83880; 84100; 84436; 84443; 84484; 85025; 85610; 85730; 86850; 86900; 86901; 90715; 93005; 93010; 93306-TC; 93880-TC; 97116-GP; 97161-GP; 99284-25; J0131; J1644; J7030

== ENCOUNTER 2019-01-28 21:33 | Observation (INO) | payer OTHER ==
--- NOTE | 2019-01-28 21:35 | PDOC ---
History of Present Illness - General Stated Complaint: POSSIBLE STROKE,FALL Time Seen by Provider: 01/28/19 21:35 - History of Present Illness Initial Comments: 01/28/19 21:41 The patient is an 88 year old female with a history of chronic constipation, GERD, Hiatal Hernia, Peptic Ulcer Disease, Anemia, Osteoarthritis, HTN who presents for evaluation of possible stroke. Per the patient's family, the patient had a 3 minute episode of slurred speech and difficulty speaking at approximately 8:00pm prompting them to call EMS. They note that the symptoms resolved after 3 minutes and the patient returned to baseline. They note that 4 days ago, the patient experienced a syncopal episode and fall and was admitted to the hospital recently discharged 2 days ago. She was worked up at that time with negative head, cervical, and facial bones CT. The patient notes that she is currently asymptomatic and otherwise denies fevers, chills, SOB, headache, chest pain, nausea, vomiting, abdominal pain, numbness, tingling, weakness, or changes with urination or bowel movements. tPA Exclusion Checklist 0-3hr - Time Elapsed Date last known well: 01/28/19 Time last known well: 20:00 Elaspsed time: Day(s) and 3 Hour(s) and 48 Minutes - Thrombolytic Therapy Candidate Is the patient eligible for Thrombolytic Therapy?: No - Relative Exclusion Criteria 0-3h Rapid improvement: Yes Stroke severity too mild: Yes - Ineligibility reason(s) Reasons No tPA given: See reason(s) noted above NIH Stroke Scale - Last Known Well Date/Time & Onset Date Last Known Well: 01/28/19 Time Last Known Well: 20:00 - Initial Evaluation Level of consciousness: Alert Ask patient the month and their age: Answers both correctly Ask patient to open & close eyes; make fist and let go: Obeys both correctly Best gaze (horizontal eye movement): Normal Visual field testing: No visual field loss Facial paresis (Show teeth/raise eyebrows/close eyes tight): Normal symmetrical movement Motor Function: Left Arm: Normal Motor Function: Right Arm: Normal (extends arm 90 (or 45) degrees for 10 seconds without drift Motor Function: Left Leg: Normal (extends leg 30 degrees for 5 seconds without drift) Motor Function: Right Leg: Normal (extends leg 30 degrees for 5 seconds without drift) Limb Ataxia: No ataxia Sensory(Use pinprick test arms,legs,trunk,face/side to side): Normal Best language (Describe picture, name items, read sentences): No Aphasia Dysarthria (read several words): Normal articulation Extinction and Inattention: No abnormality - Total Score NIH Stroke Scale Score: 0 Past History - Past Medical History Allergies/Adverse Reactions: Allergies Allergy/AdvReac Type Severity Reaction Status Date / Time codeine Allergy Severe Vomiting Verified 01/28/19 21:47 Home Medications: Ambulatory Orders Ramipril 2.5 mg PO ASDIR 04/02/18 Amlodipine Besylate [Norvasc -] 5 mg PO DAILY #30 tablet MDD 1 01/26/19 Brimonidine Tartrate [Alphagan 0.2% -] 1 drop OD BID #1 bot 01/26/19 Docusate Sodium [Colace -] 100 mg PO HS capsule 01/26/19 Pantoprazole Sodium [Protonix -] 40 mg PO DAILY tablet.ec 01/26/19 predniSONE [Deltasone -] 4 mg PO DAILY tablet 01/26/19 Anemia: No Asthma: No Cancer: No Cardiac Disorders: No CVA: No COPD: No CHF: No DVT: No Dementia: No Diabetes: No GI Disorders: Yes (HIATAL HERNIA, DIVERTICULOSIS) Disorders: No HTN: Yes Hypercholesterolemia: No Liver Disease: No Seizures: No Thyroid Disease: No - Surgical History Abdominal Surgery: No Appendectomy: No Cardiac Surgery: No Cholecystectomy: No Lung Surgery: No Neurologic Surgery: No Orthopedic Surgery: No - Immunization History Immunization Up to Date: Yes - Suicide/Smoking/Psychosocial Hx Smoking History: Unknown if ever smoked Have you smoked in the past 12 months: No If you are a former smoker, when did you quit?: ; smoked briefly as a teenager; none sicnce Hx Alcohol Use: No Drug/Substance Use Hx: No Substance Use Type: None Hx Substance Use Treatment: No Review of Systems - Review of Systems Comments:: 01/28/19 21:44 Constitutional: No fevers, chills, fatigue, malaise HEENT: No Rhinorrhea, nasal congestion, visual changes Cardiovascular: No chest pain, syncope, palpitations, lightheadedness Respiratory: No Cough, SOB, Hemoptysis, Gastrointestinal: No Abdominal pain, Nausea, Vomiting, Constipation, Diarrhea, Melena Genitourinary: No Dysuria, Frequency, Urgency, Hesitancy, Hematuria, Flank pain Musculoskeletal: No Myalgia, arthralgia Skin: No rashes, itching, bruising, pallor Neurologic: Slurred Speech. Difficulty Speaking. No Headache, Dizziness, Numbness, Weakness, or Tingling Psychiatric: No Hallucinations. No SI or HI *Physical Exam - Physical Exam Comments: 01/28/19 21:45 General Appearance: Nourished. No Apparent Distress HEENT: EOMI, CASEY. Elke-orbital echymosis noted on exam. No Pharyngeal Erythema , Tonsillar Exudate, Tonsillar Erythema Neck: No Cervical Lymphadenopathy Respiratory/Chest: Lungs Clear, Normal Breath Sounds. No Crackles, Rales, Rhonchi, Wheezing Cardiovascular: Regular Rhythm, Regular Rate. No Murmur, Gallops, Rubs Gastrointestinal/Abdominal: Normal Bowel Sounds, Soft. No Guarding, Rebound, Tenderness Musculoskeletal: No CVA Tenderness Extremity: Normal Capillary Refill Integumentary: Normal Color, Dry, Warm Neurologic: talent acquisition director II-XII NML intact, Fully Oriented, Alert, Normal Mood/Affect, Normal Response, Motor Strength 5/5. Normal Finger to Nose and Heel to Diaz Heart Score/ECG Review #1 ECG reviewed & interpreted by me at: 22:31 General ECG Interpretation: Sinus Rhythm, Normal Rate, Normal Intervals, No acute ischemic changes 01/28/19 22:31 Possible Left Atrial Enlargement HR 63 QRS 86 QTc 433 ED Treatment Course - LABORATORY CBC & Chemistry Diagram: 01/28/19 21:54 01/28/19 21:54 Medical Decision Making - Medical Decision Making 01/28/19 21:46 The patient is an 88 year old female with a history of chronic constipation, GERD, Hiatal Hernia, Peptic Ulcer Disease, Anemia, Osteoarthritis, HTN who presents for evaluation of possible stroke. Differential includes but is not limited to: TIA, CVA, Intracranial process, Infectious, Metabolic Derangement. Given the patient's history and physical exam, we will obtain a cbc, cmp, troponin, coags, lipid profile, head CT, ekg, chest plain film, UA to evaluate further. The patient is not a TPA candidate at this time given the rapid resolution of her symptoms and recent head trauma. We will continue to monitor and reassess while here in the ED. 01/28/19 23:48 CBC, cmp, troponin are unremarkable. Head CT does not demonstrate any acute findings as preliminarily read by our production line welder radiologist. The patient will require observation admission given her possible TIA. We discussed the case with the admitting team who accepted the patient for admission. *DC/Admit/Observation/Transfer Diagnosis at time of Disposition: TIA (transient ischemic attack) - Discharge Dispostion Condition at time of disposition: Stable Decision to Admit order: Yes - Referrals Referrals: Tj Good MD [Primary Care Provider] - - Patient Instructions - Post Discharge Activity
--- NOTE | 2019-01-28 21:38 | PDOC ---
Attending Attestation - Resident Resident Name: Chano Rosado - ED Attending Attestation I have performed the following: I have examined & evaluated the patient, The case was reviewed & discussed with the resident, I agree w/resident's findings & plan, Exceptions are as noted - HPI HPI: 01/28/19 21:39 88y F constipation, GERD, hiatial hernia, PUD, anemia, OA recent fall/syncope with hospital admission and discharged 2 day sago and presents with epsiode of dysarthria - per family member, she went to check in on her tonight and saw that she had difficulty articulating lasting for several minutes around 8pm before resolving. No notable weakness or facial weakness. EMS was called, per EMS her sypmtoms had already resolved by the time they arrived. prior to that pt had some vague complaints of feeling mild weakneess/malaise during dinner but family was attributing it to her having taken her HTN meds which sometimes causes the weakness. Pt denies any cp, sob, fever/chills, new neck cummins, cough, headchae, focal weakness, vision changes, dyusira, frequencym diarrhea, melenam bpr Allergies: codeine PCP - Dr. Good Cards: Dr. De Luna - Physicial Exam PE: 01/28/19 22:14 GENERAL: The patient is awake, alert, and fully oriented, Nontoxic - in no acute distress. HEAD: Normocephalic, healing wounds on face w sutures, +bruising in face, no focal bony tenderness on scalp EYES: extraocular movements intact, sclera anicteric, conjunctiva clear. ENT: Normal voice, Moist mucous membranes. NECK: Normal range of motion, supple,NO focal bony ttp to cervical/throacic/ lumbar spine LUNGS: Breath sounds equal, clear to auscultation bilaterally. No wheezes, no rhonchi, no rales. HEART: Regular rate and rhythm, normal S1 and S2 without murmur, rub or gallop. ABDOMEN: Soft, nontender, normoactive bowel sounds. No guarding, no rebound. No CVA tenderness EXTREMITIES: mild ttp to the L wrist and ecchymosis and ttp to the thenar eminence of L palm NEUROLOGICAL: No facial assymetry, normal speech, symmetric strength in upper/ lower extremities, sensatio nintact throughout, cn2-12 intact PSYCH: Normal mood, normal affect. SKIN: Warm, Dry, normal turgor, - Medical Decision Making 01/28/19 22:16 concern for posisble TIA will ck ct head, labs not TPA candidate due to resolved symptoms will admit/obs for further mangaement 01/28/19 23:45 ct head neg for pathology will obs for tia workup and neuro consult Heart Score/ECG Review - ECG Impressions Comment:: 01/28/19 22:33 Twelve-lead EKG was performed and reviewed by me. There is normal sinus rhythm with a normal rate. Rate of 63 Abnormal R wave progression No ST changes suggestive of acute ischemia
[2019-01-28 21:48] VITALS: BMI 19.6
[2019-01-28 22:11] LABS: BASO % 1.1 % (0-2.0); EOS % 3.8 % (0-4.5); HEMATOCRIT 35.9 % (32.4-45.2); HEMOGLOBIN 12.2 GM/dL (10.7-15.3); LYMPH % 21.2 % (8-40); MCH 32.5 pg (25.7-33.7); MEAN CELL VOLUME 95.5 fl (80-96); MEAN PLT VOLUME 8.1 fl (7.5-11.1); MONO % 9.8 % (3.8-10.2); NEUT % 64.1 % (42.8-82.8); PLATELET COUNT 213 K/MM3 (134-434); RBC 3.76 M/mm3 (3.60-5.2); RDW 14.9 % (11.6-15.6); WHITE BLOOD COUNT 7.9 K/mm3 (4.0-10.0)
[2019-01-28 22:27] LABS: ALBUMIN 3.2 g/dl (3.4-5.0); ALK PHOS 57 U/L (45-117); ANION GAP 6 MMOL/L (8-16); BILIRUBIN,TOTAL 0.3 mg/dL (0.2-1); BLOOD UREA NITROGEN 22 mg/dL (7-18); CALCIUM 8.7 mg/dL (8.5-10.1); CHLORIDE 101 mmol/L (98-107); CHOLESTEROL 211 mg/dL (50-200); CO2 28 mmol/L (21-32); CREATININE 1.1 mg/dL (0.55-1.3); GLUCOSE,RANDOM 110 mg/dL (74-106); HDL CHOLESTEROL 76 mg/dL (40-60); POTASSIUM 3.9 mmol/L (3.5-5.1); SGOT/AST 35 U/L (15-37); SGPT/ALT 44 U/L (13-61); SODIUM 135 mmol/L (136-145); TOT PROT 6.4 g/dl (6.4-8.2); TRIGLYCERIDES 125 mg/dL (0-150)
[2019-01-28 22:56] LABS: INR 0.97 (0.83-1.09); PROTHROMBIN TIME (PATIENT) 11.5 SEC (9.7-13.0)
[2019-01-28 22:58] LABS: ACTIVATED PTT 31.2 SECONDS (25.2-36.5)
--- NOTE | 2019-01-28 23:43 | HP ---
Admitting History and Physical - Primary Care Physician PCP: Tj Good - Admission Chief Complaint: Slurred Speech History of Present Illness: This is a 88 y/o woman with a PMHx of HTN, HLD, Anemia, GERD, Hiatal Hernia, Chronic Constipation, recent admission for Syncope (01/24-01/26). Who presents to the ED with her daughters for slurred speech and dysarthria lasting 3 minutes x 20:00, now resolved. Patient's daughter reports that the patient's speech became slurred and then having "trouble with her words". Patient's daughter reports she returned back to baseline. Patient denies blurred vision, BATEMAN, numbness, facial droop. Patient denies fever, chills, cough, dizziness, SOB, CP , palpitations, AP, N/V/D, dysuria. History Source: Patient, Family Member Limitations to Obtaining History: No Limitations - Past Medical History CLOTH LAYER: Yes: Migraine, Vertigo Cardiovascular: Yes: HTN, Hyperlipdemia. No: AFIB, CHF Gastrointestinal: Yes: Constipation, GERD, Hiatal Hernia, Irritable Bowel Disease, Peptic Ulcer Disease Heme/Onc: Yes: Anemia Musculoskeletal: Yes: Osteoarthritis - Past Surgical History Past Surgical History: Yes: Colonoscopy, Upper Endoscopy (2013-colonoscopy and EGD- hiatal hernia and 4 polyps removed) - Smoking History Smoking history: Unknown if ever smoked Have you smoked in the past 12 months: No If you are a former smoker, when did you quit?: ; smoked briefly as a teenager; none sicnce - Alcohol/Substance Use Hx Alcohol Use: No - Social History ADL: Independent History of Recent Travel: No Home Medications - Allergies Allergies/Adverse Reactions: Allergies Allergy/AdvReac Type Severity Reaction Status Date / Time codeine Allergy Severe Vomiting Verified 01/28/19 21:47 - Home Medications Home Medications: Ambulatory Orders Ramipril 2.5 mg PO ASDIR 04/02/18 Amlodipine Besylate [Norvasc -] 5 mg PO DAILY #30 tablet MDD 1 01/26/19 Brimonidine Tartrate [Alphagan 0.2% -] 1 drop OD BID #1 bot 01/26/19 Docusate Sodium [Colace -] 100 mg PO HS capsule 01/26/19 Pantoprazole Sodium [Protonix -] 40 mg PO DAILY tablet.ec 01/26/19 predniSONE [Deltasone -] 4 mg PO DAILY tablet 01/26/19 Family Disease History - Family Disease History Family Disease History: CA: Father (prostate ca), Mother ("old age leukemia"- likely CLL), Brother (lymphoma) Physical Examination Vital Signs: Vital Signs Temperature 98.1 F 01/28/19 21:33 Pulse Rate 67 01/28/19 21:33 Respiratory Rate 16 01/28/19 21:33 Blood Pressure 184/89 H 01/28/19 21:33 O2 Sat by Pulse Oximetry (%) 98 01/28/19 21:33 Constitutional: Yes: No Distress, Calm, Thin Eyes: Yes: Conjunctiva Clear, EOM Intact, PERRL HENT: Yes: Normocephalic, Other (eccyhmotic bruising to face, orbits) Neck: Yes: WNL, Supple, Trachea Midline Cardiovascular: Yes: Regular Rate and Rhythm, S1, S2 Respiratory: Yes: WNL, Regular, CTA Bilaterally Gastrointestinal: Yes: WNL, Normal Bowel Sounds, Soft Renal/: Yes: WNL Breast(s): Yes: WNL Musculoskeletal: Yes: Other (left hand) Extremities: Yes: WNL Edema: No Peripheral Pulses WNL: Yes Integumentary: Yes: Bruising Wound/Incision: Yes: Sutures Intact (nare bridge) Neurological: Yes: WNL, Alert, Oriented, Cran Nerves II-XII Intact. No: Confusion, Dysarthria, Facial Droop, Lethargy, Numbness, Weakness ...Motor Strength: WNL Psychiatric: Yes: WNL, Alert, Oriented Labs: CBC, BMP 01/28/19 21:54 01/28/19 21:54 Laboratory Results - last 24 hr 01/28/19 01/28/19 01/28/19 21:54 21:54 21:54 WBC 7.9 RBC 3.76 Hgb 12.2 Hct 35.9 MCV 95.5 MCH 32.5 MCHC 34.0 RDW 14.9 Plt Count 213 MPV 8.1 Absolute Neuts (auto) 5.1 Neutrophils % 64.1 Lymphocytes % 21.2 Monocytes % 9.8 Eosinophils % 3.8 Basophils % 1.1 Nucleated RBC % 0 PT with INR Cancelled INR Cancelled PTT (Actin FS) Sodium 135 L Potassium 3.9 Chloride 101 Carbon Dioxide 28 Anion Gap 6 L BUN 22 H Creatinine 1.1 Creat Clearance w eGFR 47.09 POC Glucometer Random Glucose 110 H Calcium 8.7 Magnesium Total Bilirubin 0.3 AST 35 ALT 44 Alkaline Phosphatase 57 Creatine Kinase 60 Troponin I < 0.02 Total Protein 6.4 Albumin 3.2 L Triglycerides 125 Cholesterol 211 H Total LDL Cholesterol 116 H HDL Cholesterol 76 H TSH Urine Color Urine Appearance Urine pH Ur Specific [place] Urine Protein Urine Glucose (UA) Urine Ketones Urine Blood Urine Nitrite Urine Bilirubin Urine Urobilinogen Ur Leukocyte Esterase Urine WBC (Auto) Urine RBC (Auto) Urine Casts (Auto) U Epithel Cells (Auto) Urine Bacteria (Auto) Blood Type Antibody Screen 01/28/19 01/28/19 01/28/19 21:54 22:42 22:42 WBC RBC Hgb Hct MCV MCH MCHC RDW Plt Count MPV Absolute Neuts (auto) Neutrophils % Lymphocytes % Monocytes % Eosinophils % Basophils % Nucleated RBC % PT with INR 11.50 INR 0.97 PTT (Actin FS) 31.2 Sodium Potassium Chloride Carbon Dioxide Anion Gap BUN Creatinine Creat Clearance w eGFR POC Glucometer Random Glucose Calcium Magnesium Total Bilirubin AST ALT Alkaline Phosphatase Creatine Kinase Troponin I Total Protein Albumin Triglycerides Cholesterol Total LDL Cholesterol HDL Cholesterol TSH Urine Color Urine Appearance Urine pH Ur Specific [place] Urine Protein Urine Glucose (UA) Urine Ketones Urine Blood Urine Nitrite Urine Bilirubin Urine Urobilinogen Ur Leukocyte Esterase Urine WBC (Auto) Urine RBC (Auto) Urine Casts (Auto) U Epithel Cells (Auto) Urine Bacteria (Auto) Blood Type Cancelled O POSITIVE Antibody Screen Cancelled Negative 01/28/19 01/29/19 01/29/19 23:15 00:20 05:55 WBC 8.6 RBC 3.96 Hgb 12.5 Hct 37.3 MCV 94.3 MCH 31.5 MCHC 33.4 RDW 15.3 Plt Count 212 MPV 8.0 Absolute Neuts (auto) 5.4 Neutrophils % 62.8 Lymphocytes % 22.4 Monocytes % 9.7 Eosinophils % 4.1 Basophils % 1.0 Nucleated RBC % 0 PT with INR INR PTT (Actin FS) Sodium Potassium Chloride Carbon Dioxide Anion Gap BUN Creatinine Creat Clearance w eGFR POC Glucometer 104 Random Glucose Calcium Magnesium Total Bilirubin AST ALT Alkaline Phosphatase Creatine Kinase Troponin I Total Protein Albumin Triglycerides Cholesterol Total LDL Cholesterol HDL Cholesterol TSH Urine Color Yellow Urine Appearance Clear Urine pH 7.0 Ur Specific [place] 1.008 L Urine Protein Negative Urine Glucose (UA) Negative Urine Ketones Negative Urine Blood Negative Urine Nitrite Negative Urine Bilirubin Negative Urine Urobilinogen 0.2 Ur Leukocyte Esterase 1+ H Urine WBC (Auto) 12 Urine RBC (Auto) 1 Urine Casts (Auto) 1 U Epithel Cells (Auto) 0.3 Urine Bacteria (Auto) 1.5 Blood Type Antibody Screen 01/29/19 01/29/19 05:55 05:55 WBC RBC Hgb Hct MCV MCH MCHC RDW Plt Count MPV Absolute Neuts (auto) Neutrophils % Lymphocytes % Monocytes % Eosinophils % Basophils % Nucleated RBC % PT with INR INR PTT (Actin FS) Sodium 135 L Potassium 3.9 Chloride 103 Carbon Dioxide 26 Anion Gap 6 L BUN 18 Creatinine 0.9 Creat Clearance w eGFR 59.37 POC Glucometer Random Glucose 88 Calcium 8.7 Magnesium 2.1 Total Bilirubin AST ALT Alkaline Phosphatase Creatine Kinase Troponin I < 0.02 Total Protein Albumin Triglycerides Cholesterol Total LDL Cholesterol HDL Cholesterol TSH 3.42 Urine Color Urine Appearance Urine pH Ur Specific [place] Urine Protein Urine Glucose (UA) Urine Ketones Urine Blood Urine Nitrite Urine Bilirubin Urine Urobilinogen Ur Leukocyte Esterase Urine WBC (Auto) Urine RBC (Auto) Urine Casts (Auto) U Epithel Cells (Auto) Urine Bacteria (Auto) Blood Type Antibody Screen Current Medications Generic Name Dose Route Start Last Admin Trade Name Freq PRN Reason Stop Dose Admin Acetaminophen 500 mg 01/29/19 01:26 Tylenol - PO Q6H PRN PAIN LEVEL 6-10 Amlodipine Besylate 5 mg 01/30/19 10:00 Norvasc - PO DAILY [facility] Brimonidine Tartrate 1 drop 01/29/19 10:00 Alphagan 0.2% - OU BID MITCH Docusate Sodium 100 mg 01/29/19 22:00 Colace - PO HS MITCH Pantoprazole Sodium 40 mg 01/29/19 10:00 Protonix - PO DAILY MITCH Prednisone 3.5 mg 01/29/19 10:00 Deltasone - PO DAILY MITCH Ramipril 2.5 mg 01/29/19 10:00 Altace - PO DAILY MITCH Intake & Output 01/26/19 01/27/19 01/28/19 01/29/19 23:59 23:59 23:59 23:59 Weight 47.174 kg Imaging - Results Chest X-ray: Image Reviewed Cat Scan: Image Reviewed EKG: Image Reviewed Problem List - Problems (1) TIA (transient ischemic attack) Assessment/Plan: Likely due to arrhythmia Cardiac monitoring NIHSS 0 Appreciate Neurology consult Appreciate Cardiology consult Serial Enzymes, neg x1 neg will trend Echo 01/24- LVSF, nl, RV, nl, trace TR Carotid Doppler 01/24- small plaque left carotid, without evidence significant stenosis Head CT- neg ICH Chest Xray- no acute pathology EKG- NSR, no ST changes Neuro checks Swallow Eval Fall Precautions Monitor CBC, BMP Continue Asa Code(s): G45.9 - TRANSIENT CEREBRAL ISCHEMIC ATTACK, UNSPECIFIED (2) HTN (hypertension) Assessment/Plan: stable Continue home meds with parameters Monitor renal function Code(s): I10 - ESSENTIAL (PRIMARY) HYPERTENSION (3) Facial trauma Assessment/Plan: Secondary to Syncope s/p Fall Tylenol prn f/u with Plastics for suture removal Bacitracin Code(s): S09.93XA - UNSPECIFIED INJURY OF FACE, INITIAL ENCOUNTER Qualifiers: Encounter type: initial encounter Qualified Code(s): S09.93XA - Unspecified injury of face, initial encounter (4) GERD (gastroesophageal reflux disease) Assessment/Plan: Continue PPI Code(s): K21.9 - GASTRO-ESOPHAGEAL REFLUX DISEASE WITHOUT ESOPHAGITIS Assessment/Plan This is a 88 y/o woman placed in Telemetry Observation for TIA for further evaluation of their emergent condition. Plan: See Problem List FEN PO fluids as tolerated Replete lytes prn Low Na Soft Diet DVT ppx OOB SCDs Consider AC if LOS > 48 hrs Visit type - Emergency Visit Emergency Visit: Yes ED Registration Date: 01/28/19 Care time: The patient presented to the Emergency Department on the above date and was hospitalized for further evaluation of their emergent condition. - New Patient This patient is new to me today: Yes Date on this admission: 01/28/19 - Critical Care Critical Care patient: No
[2019-01-29 00:42] LABS: EPI CELLS 0.3 /HPF (0-5/HPF); URINE APPEARANCE CLEAR; URINE BACTERIA 1.5 /hpf (NEGATIVE); URINE BILIRUBIN NEGATIVE (NEGATIVE); URINE CASTS 1 /hpf (0-8); URINE COLOR YELLOW; URINE GLUCOSE (UA) NEGATIVE (NEGATIVE); URINE KETONE NEGATIVE (NEGATIVE); URINE LEUK ESTERASE 1+ (NEGATIVE); URINE NITRITE NEGATIVE (NEGATIVE); URINE PROTEIN NEGATIVE (NEGATIVE); URINE RBC 1 /hpf (0-4); URINE UROBILINOGEN 0.2 mg/dL (0.2-1.0); URINE WBC 12 /hpf (0-5)
[2019-01-29] MEDS ORDERED: BRIMONIDINE TARTRATE 0.2% OPHTHALMIC 5 ML BOTTLE OD SCH (01:00)
[2019-01-29] MEDS ORDERED: amLODIPine BESYLATE 5 MG TABLET (FP) PO ONE (01:13)
[2019-01-29] MEDS ORDERED: ACETAMINOPHEN 500 MG TABLET (FP) PO PRN (01:26)
[2019-01-29] MEDS ORDERED: amLODIPine BESYLATE 5 MG TABLET (FP) ONE (01:35)
[2019-01-29 06:22] LABS: EOS % 4.1 % (0-4.5); HEMATOCRIT 37.3 % (32.4-45.2); HEMOGLOBIN 12.5 GM/dL (10.7-15.3); LYMPH % 22.4 % (8-40); MCH 31.5 pg (25.7-33.7); MCHC 33.4 g/dl (32.0-36.0); MEAN CELL VOLUME 94.3 fl (80-96); MONO % 9.7 % (3.8-10.2); NEUT % 62.8 % (42.8-82.8); PLATELET COUNT 212 K/MM3 (134-434); RBC 3.96 M/mm3 (3.60-5.2); RDW 15.3 % (11.6-15.6); WHITE BLOOD COUNT 8.6 K/mm3 (4.0-10.0)
[2019-01-29 06:50] LABS: ANION GAP 6 MMOL/L (8-16); BLOOD UREA NITROGEN 18 mg/dL (7-18); CALCIUM 8.7 mg/dL (8.5-10.1); CHLORIDE 103 mmol/L (98-107); CO2 26 mmol/L (21-32); CREATININE 0.9 mg/dL (0.55-1.3); GLUCOSE,RANDOM 88 mg/dL (74-106); MAGNESIUM 2.1 mg/dL (1.8-2.4); POTASSIUM 3.9 mmol/L (3.5-5.1); SODIUM 135 mmol/L (136-145)
--- NOTE | 2019-01-29 08:58 | CON.CARD ---
Consult Consult Specialty:: cardio - History of Present Illness History of Present Illness: 88 F here with difficulty with speech. was here last week episode of syncope in setting of recent prolonged air travel , decr PO intake, while standing at gas station. she fell to ground bumping her head/face. felt likely vasovagal/orthostatic. at that time she was standing approx 10 min in gas station waiting, felt legs weak and wave of lightheadedness--has had these feelings off and on for long time. initial BP in ER 220/100--improved significantly with treatment. sustained periorbital ecchy.s and lac to nasal dorsum req'd sutures. CT head no acute pathology, carotid dopplers no obstr plq. had brief syncope while using bedpan in ER. observed x 48 hrs then discharged. returns now with episode of witnessed slurred speech and difficulty with words, lasting 3 minutes on DOA (approx 8 pm). pt recalls being in bedroom getting ready for bed b/c felt tired and dtr came to check on her and she wanted to respond to dtr saying "i'm fine, everything ok " but could not get the words out. understood everything being said to her. denies all other new neuro deficits. no cp, sob, palpitations. didn't check bp at that time--EMS came quickly and bp high 170s she recalls. 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 No: AFIB, CHF Gastrointestinal: Yes: Constipation, GERD, Hiatal Hernia, Irritable Bowel Disease, Peptic Ulcer Disease Musculoskeletal: Yes: Osteoarthritis - Past Surgical History Past Surgical History: Yes: Colonoscopy, Upper Endoscopy (2014-colonoscopy and EGD- hiatal hernia and 4 polyps removed) - Alcohol/Substance Use Hx Alcohol Use: No - Smoking History Smoking history: Unknown if ever smoked Have you smoked in the past 12 months: No If you are a former smoker, when did you quit?: ; smoked briefly as a teenager; none sicnce - Social History Usual Living Arrangement: With Child ADL: Independent History of Recent Travel: No Home Medications - Allergies Allergies/Adverse Reactions: Allergies Allergy/AdvReac Type Severity Reaction Status Date / Time codeine Allergy Severe Vomiting Verified 01/28/19 21:47 - Home Medications Home Medications: Ambulatory Orders Ramipril 2.5 mg PO ASDIR 04/02/18 Amlodipine Besylate [Norvasc -] 5 mg PO DAILY #30 tablet MDD 1 01/26/19 Brimonidine Tartrate [Alphagan 0.2% -] 1 drop OD BID #1 bot 01/26/19 Docusate Sodium [Colace -] 100 mg PO HS capsule 01/26/19 Pantoprazole Sodium [Protonix -] 40 mg PO DAILY tablet.ec 01/26/19 predniSONE [Deltasone -] 4 mg PO DAILY tablet 01/26/19 Family Disease History - Family Disease History Family Disease History: CA: Father (prostate ca), Mother ("old age leukemia"- likely CLL), Brother (lymphoma) Review of Systems - Review of Systems Constitutional: denies: Chills, Fever Eyes: denies: Eye Pain HENT: denies: Nasal Congestion Neck: denies: Stiffness Cardiovascular: denies: Palpitations Respiratory: denies: Orthopnea, PND Gastrointestinal: denies: Diarrhea, Rectal Bleeding Genitourinary: denies: Burning, Hematuria Musculoskeletal: denies: Muscle Pain Integumentary: denies: Rash Neurological: denies: Numbness, Seizure, Syncope Endocrine: denies: Excessive Sweating Hematology/Lymphatic: denies: Excessive Bleeding Vital Signs: Vital Signs Temperature 98.2 F 01/29/19 04:31 Pulse Rate 66 01/29/19 04:31 Respiratory Rate 16 01/28/19 21:33 Blood Pressure 179/75 H 01/29/19 04:31 O2 Sat by Pulse Oximetry (%) 96 01/29/19 04:31 Constitutional: Yes: Well Nourished, No Distress Eyes: No: Sclera Icterus HENT: No: Nasal Congestion Neck: No: Decreased ROM Respiratory: Yes: CTA Bilaterally. No: Accessory Muscle Use, Rales, Wheezes Gastrointestinal: Yes: Normal Bowel Sounds. No: Distention, Hepatomegaly, Palpable Mass, Tenderness Cardiovascular: Yes: Regular Rate and Rhythm JVD: No Carotid Bruit: No PMI: Non-Displaced Heart Sounds: Yes: S1, S2. No: Gallop Murmur: No: Systolic Murmur, Diastolic Murmur Musculoskeletal: Yes: Other (No kyphosis) Extremities: No: Cool, Cyanosis Edema: No Peripheral Pulses: 2+ Left Carotid, 2+ Right Carotid, 2+ Left Doralis Pedis, 2+ Right Dorsalis Pedis Integumentary: No: Jaundice Neurological: Yes: Alert, Oriented (x3) Psychiatric: No: Agitated - Other Data Labs, Other Data: CBC, BMP 01/29/19 05:55 01/29/19 05:55 INR, PTT INR 0.97 (0.83-1.09) 01/28/19 22:42 Troponin, BNP 01/28/19 01/29/19 21:54 05:55 Troponin I < 0.02 < 0.02 Troponin, BNP 01/28/19 01/29/19 21:54 05:55 Troponin I < 0.02 < 0.02 Laboratory Tests 01/28/19 01/29/19 01/29/19 21:54 05:55 05:55 WBC 8.6 Hgb 12.5 Plt Count 212 Sodium 135 L Potassium 3.9 Carbon Dioxide 26 BUN 18 Creatinine 0.9 AST 35 ALT 44 Troponin I < 0.02 Triglycerides 125 Cholesterol 211 H Total LDL Cholesterol 116 H HDL Cholesterol 76 H TSH 3.42 01/29/19 05:55 WBC Hgb Plt Count Sodium Potassium Carbon Dioxide BUN Creatinine AST ALT Troponin I < 0.02 Triglycerides Cholesterol Total LDL Cholesterol HDL Cholesterol TSH Assessment/Plan echo 08/2017: nl lv/rv, mild ar echo 01/2019: nl lv/rv, no sig valve path mibi 2011: no ischemia carotids 02/02: nonob plq ECG 01/28: NSR, normal intervals WNL CXR: clear lungs/pleura a/p: 88 f hx htn, hld, pmr, here with syncope. TIA: -brief slurring of speech, ? expr aphasia on DOA. -CT head no acute pathology -pt anxious re: MRI--planned for outpt -d/w'd her this sounds like true TIA and risk of stroke likely to be reduced with statin. has been hesitant in past due to fears will worsen PMR sx's. rec'd we start with atorva 5 qd and observe--she agrees. -ASA -o/w per neuro recent syncope: -episode 01/24/19 while standing in line, in setting of prolonged air travel and decr PO was suspected orthostasis or vasovagal event, despite signif facial trauma she sustained. monitored in ER for 48 hrs then, no events. htn: -HTN urgency 02/02 in post-syncope setting--given iv labetalo. -was on ramipril 2.5 at home. amlodipne 5 added here last week for hi bp's -same meds for now -does seem to have orthostatic hypotension tendencies by her history she provides today--need to follow her closely as outpatient for sx's, rec check orthostatic BPs at home (reliable pt) hld: -start low dose statin, as above.
[2019-01-29] MEDS ORDERED: ASPIRIN 81 MG CHEWABLE TABLETS PO SCH (10:00)
[2019-01-29] MEDS ORDERED: RAMIPRIL 2.5 MG CAPSULE (FP) PO SCH (10:00)
[2019-01-29] MEDS ORDERED: PANTOPRAZOLE 40 MG TABLET (FP) PO SCH (10:00)
[2019-01-29] MEDS ORDERED: predniSONE 1 MG TABLET (FP) PO SCH (10:00)
--- NOTE | 2019-01-29 10:01 | CON.NEURO ---
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 No: AFIB, CHF Gastrointestinal: Yes: Constipation, GERD, Hiatal Hernia, Irritable Bowel Disease, Peptic Ulcer Disease Musculoskeletal: Yes: Osteoarthritis - Past Surgical History Past Surgical History: Yes: Colonoscopy, Upper Endoscopy (2013-colonoscopy and EGD- hiatal hernia and 4 polyps removed) - Alcohol/Substance Use Hx Alcohol Use: No - Smoking History Smoking history: Unknown if ever smoked Have you smoked in the past 12 months: No If you are a former smoker, when did you quit?: ; smoked briefly as a teenager; none sicnce - Social History Usual Living Arrangement: With Child ADL: Independent History of Recent Travel: No Home Medications - Allergies Allergies/Adverse Reactions: Allergies Allergy/AdvReac Type Severity Reaction Status Date / Time codeine Allergy Severe Vomiting Verified 01/28/19 21:47 - Home Medications Home Medications: Ambulatory Orders Ramipril 2.5 mg PO ASDIR 04/02/18 Amlodipine Besylate [Norvasc -] 5 mg PO DAILY #30 tablet MDD 1 01/26/19 Brimonidine Tartrate [Alphagan 0.2% -] 1 drop OD BID #1 bot 01/26/19 Docusate Sodium [Colace -] 100 mg PO HS capsule 01/26/19 Pantoprazole Sodium [Protonix -] 40 mg PO DAILY tablet.ec 01/26/19 predniSONE [Deltasone -] 4 mg PO DAILY tablet 01/26/19 Family Disease History - Family Disease History Family Disease History: CA: Father (prostate ca), Mother ("old age leukemia"- likely CLL), Brother (lymphoma) Physical Exam-Neuro Vital Signs: Vital Signs Temperature 98.2 F 01/29/19 04:31 Pulse Rate 66 01/29/19 04:31 Respiratory Rate 16 01/28/19 21:33 Blood Pressure 179/75 H 01/29/19 04:31 O2 Sat by Pulse Oximetry (%) 96 01/29/19 04:31 Labs: CBC, BMP 01/29/19 05:55 01/29/19 05:55 INR, PTT INR 0.97 (0.83-1.09) 01/28/19 22:42 Assessment/Plan CC Slurring of speech lasted 20 minute HPI 88 year old female history of HTN, GERD, Temporal arteritis and Polymyalgia Rheumatica. Patient has been to [facility] for syncope. She has extensive work up done and was in tele for few days. She has carotid ultrasound and echo and were unremarkable. As she has facial bruise , her aspirin was stopped. Patient has episode of TIA four years ago, and was advice to be on statin but as she has muscle pain and it was not started and patient is not taking any statin at this time. Patient is feeling good now and back to normal. She see [facility] as outpatient and is on prednisone 3.5 mg once a day, and before she was on methotrexate . PMH as above SH,ROS reviewed in chart Allergies/Adverse Reactions: Allergies Allergy/AdvReac Type Severity Reaction Status Date / Time codeine Allergy Severe Vomiting Verified 01/28/19 21:47 Home Medications: Ramipril 2.5 mg PO ASDIR 04/02/18 Amlodipine Besylate [Norvasc -] 5 mg PO DAILY #30 tablet MDD 1 01/26/19 Brimonidine Tartrate [Alphagan 0.2% -] 1 drop OD BID #1 bot 01/26/19 Docusate Sodium [Colace -] 100 mg PO HS capsule 01/26/19 Pantoprazole Sodium [Protonix -] 40 mg PO DAILY tablet.ec 01/26/19 predniSONE [Deltasone -] 4 mg PO DAILY tablet 01/26/19 Family Disease History: CA: Father (prostate ca), Mother ("old age leukemia"- likely CLL), Brother (lymphoma) NEUROLOGICAL EXAMINATION Alert oriented x 3, speech is normal, no neck stiffness THere is multiple facial bruises were seen eomi, pupils reactive, no face asymmetry moving all extremity there is limited arm movement on hand thermometer tester due to pain on left upper extremity lower extremity strength is noraml sensation is noraml reflex are generalized grade [address] head unremarkable carotid ultrasound done on january 24 is normal echo was done recently Assessment /PLan 1. Most likely tia, as aspirin was recently stopped due to facial bruises -resume aspirin 81 once a day - work up was negative including recently done carotid ultrasound, echo, holter and ct head on this admission -cant get mri due to claustrophobic - suggest to repeat ct head 2. Temporal arteritis /Polymyalgia rheumatica -clinically stable, - prednisone to 3.5 mg - repeat esr - if very high consider rheumatology consult Thanking you so much Ander Kim MD Thanking you so much Ander Kim MD
--- NOTE | 2019-01-29 10:27 | EKG ---
Test Reason : Blood Pressure : / mmHG Vent. Rate : 063 BPM Atrial Rate : 063 BPM P-R Int : 184 ms QRS Dur : 086 ms QT Int : 424 ms P-R-T Axes : 063 -23 039 degrees QTc Int : 433 ms NORMAL SINUS RHYTHM POSSIBLE LEFT ATRIAL ENLARGEMENT ANTERIOR INFARCT , AGE UNDETERMINED ABNORMAL ECG WHEN COMPARED WITH ECG OF 24-JAN-2019 11:53, NO SIGNIFICANT CHANGE WAS FOUND Confirmed by SHALONDA PLEITEZ MD ([id number]) on 01/29/2019 10:27:07 AM Referred By: Confirmed By:SHALONDA PLEITEZ MD
[2019-01-29] MEDS: BRIMONIDINE TARTRATE 0.2% OPHTHALMIC 5 ML BOTTLE OU SCH ×2 (11:02→13:30)
--- NOTE | 2019-01-29 11:17 | DS ---
Physical Examination Vital Signs: Vital Signs Temperature 98.2 F 01/29/19 04:31 Pulse Rate 66 01/29/19 04:31 Respiratory Rate 16 01/28/19 21:33 Blood Pressure 179/75 H 01/29/19 04:31 O2 Sat by Pulse Oximetry (%) 96 01/29/19 04:31 speech normal no sensory or motor deficits Constitutional: Yes: Calm, Thin HENT: Yes: Other (facial periorbital ecchymosis improving nasal rim sutures) Cardiovascular: Yes: Regular Rate and Rhythm, S1, S2 Respiratory: Yes: CTA Bilaterally Gastrointestinal: Yes: Normal Bowel Sounds, Soft Extremities: Yes: Other (left hand resolving ecchymosis has rom) Edema: No Labs: CBC, BMP 01/29/19 05:55 01/29/19 05:55 Discharge Summary Reason For Visit: TRANSIENT ISCHEMIC ATTACK Current Active Problems HTN (hypertension) (Acute) TIA (transient ischemic attack) (Acute) Hospital Course: - Primary Care Physician PCP: Tj Good - Admission Chief Complaint: Slurred Speech History of Present Illness: This is a 88 y/o woman with a PMHx of HTN, HLD, Anemia, GERD, Hiatal Hernia, Chronic Constipation, recent admission for Syncope (01/24-01/26). Who presents to the ED with her daughters for slurred speech and dysarthria lasting 3 minutes x 20:00, now resolved. Patient's daughter reports that the patient's speech became slurred and then having "trouble with her words". Patient's daughter reports she returned back to baseline. Patient denies blurred vision, BATEMAN, numbness, facial droop. Patient denies fever, chills, cough, dizziness, SOB, CP , palpitations, AP, N/V/D, dysuria ct head done no acute infarct - repeat ct scan ordered for today if no new changes will go home cannot do closed MRI will do oepn MRI as outpatient bc of claustrophobia seen by cardiology, lipid panel noted plan start lipitor very low dose and aspirin Condition: Stable - Instructions Disposition: HOME - Home Medications Comprehensive Discharge Medication List: Ambulatory Orders Ramipril 2.5 mg PO ASDIR 04/02/18 Amlodipine Besylate [Norvasc -] 5 mg PO DAILY #30 tablet MDD 1 01/26/19 Brimonidine Tartrate [Alphagan 0.2% -] 1 drop OD BID #1 bot 01/26/19 Docusate Sodium [Colace -] 100 mg PO HS capsule 01/26/19 Pantoprazole Sodium [Protonix -] 40 mg PO DAILY tablet.ec 01/26/19 predniSONE [Deltasone -] 4 mg PO DAILY tablet 01/26/19
[2019-01-29 12:00] VITALS: TEMP 97.9
--- NOTE | 2019-01-29 12:49 | CONSULT ---
Admitting History and Physical - Primary Care Physician PCP: Ani Wynn - Admission History of Present Illness: 88 yo with recent admission for episode of syncope following prolonged air travel, fell on face. Denied subsequent headaches, sleep disturbance, confusion , memory deficits. Pt now with onset of slurred speech and difficulty expressing herself with lasted for 3 minutes. Pt is back to baseline. Excellent historian and recall of events. Spontaneous recovery to baseline. 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 No: AFIB, CHF Gastrointestinal: Yes: Constipation, GERD, Hiatal Hernia, Irritable Bowel Disease, Peptic Ulcer Disease Heme/Onc: Yes: Anemia Musculoskeletal: Yes: Osteoarthritis - Past Surgical History Past Surgical History: Yes: Colonoscopy, Upper Endoscopy (2013-colonoscopy and EGD- hiatal hernia and 4 polyps removed) - Smoking History Smoking history: Unknown if ever smoked Have you smoked in the past 12 months: No If you are a former smoker, when did you quit?: ; smoked briefly as a teenager; none sicnce - Alcohol/Substance Use Hx Alcohol Use: No - Social History ADL: Independent History of Recent Travel: No History - Admission Reason For Visit: TRANSIENT ISCHEMIC ATTACK - Diagnostics X-ray: Report Reviewed CT Scan: Report Reviewed MRI: Pending (as out pt) - General Mental Status: Alert and Oriented, Awake and Alert, Able to Follow Commands Attention: Intact Ability to Follow Directions: Excellent Head/Neck Control: WFL - Hearing Hearing: Functional Speech Evaluation - Communication Primary Language: S[place] Communication: Yes: Within Normal Limits Oral Expression Ability: Yes: No Impairment - Speech Production Able to Make Needs Known: Yes: WNL Intelligibility: Yes: WNL - Speech Characteristics Voice Loudness: Normal Voice Pitch: Yes: Normal Voice Phonatory-based Quality: Yes: Normal Speech Pattern: Normal Speech Clarity: < 100% Nasal Resonance: Normal Articulation: Yes: Precise - Language/Auditory Comprehension Follows: Yes: 2 Stage Simple Commands Observation: Able to respond to yes/no queries: Yes, Yes/No Confusion: No, Comprehends Conversational Speech: Yes - Language/Verbal Expression Able to Respond to Simple Queries: Yes: WNL Able to Communicate Wants and Needs: Yes: WNL Functional Communication Status: Yes: WNL - Memory/Perception skilled nursing Memory: Yes: WNL Short Term Memory: Yes: WNL - Swallow Evaluation/Bedside Assessment Current Nutritional Intake: Soft, Thin Liquids Oral Secretions: Yes: WFL Dentition: Yes: Adequate Facial Symmetry at Rest: Symmetrical Facial Symmetry on Retraction: Symmetrical Facial Movement: Controlled Against Resistance Opening: Normal Against Resistance Closing: Normal Pucker Lips: Normal Smile: Normal Lingual Movement: Normal, Symmetric Lingual Speed of Movement: Normal Lingual Movement Strgth Against Opposition: Normal Lingual Movement Characteristics: Normal Laryngeal Elevation: WFL Laryngeal Movement: Able to Palpate Rate of Intake: WFL Bolus Size: WFL Labial Seal: WFL Chewing: WFL Oral Prep Time: WFL A-P Transit: WFL Pocketing: None Timing of Swallow: WFL Coughing/Throat Clear: No Change in Voice: No Recommendations - Speech Evaluation, Impression/Plan Impression: Speech,language,cognition,swallowing at baseline. - Dysphagia Impressions/Plan Swallowing Skills: WF Dysphagia Impressions: No Impairment *Silent aspiration: cannot be R/O at bedside - Recommendations Diet Consistency: Regular Medication Administration: Whole with water Liquids: Thin Liquids
[2019-01-29] MEDS ORDERED: ASPIRIN 81 MG CHEWABLE TABLETS ONE (13:41)
[2019-01-29 15:57] VITALS: BP 111/63; PULSE 69
[2019-01-29] MEDS ORDERED: ATORVASTATIN CA 10 MG TABLET (FP) PO SCH (22:00)
[2019-01-29] MEDS ORDERED: DOCUSATE SODIUM 100 MG CAPSULE (FP) PO SCH (22:00)
[2019-01-30] MEDS ORDERED: amLODIPine BESYLATE 5 MG TABLET (FP) PO SCH (10:00)
== END 2019-01-29 15:55 | disposition home or self-care (01) ==
LOC: JER 21:33 → JERBED 23:45
PROVIDERS: ADMIT Family Medicine; ATTEND Family Medicine
DX: G45.9 Transient cerebral ischemic attack, unspecified (principal); I10 Essential (primary) hypertension; K21.9 Gastro-esophageal reflux disease without esophagitis; M19.90 Unspecified osteoarthritis, unspecified site; K44.9 Diaphragmatic hernia without obstruction or gangrene; S09.93XD Unspecified injury of face, subsequent encounter; W18.39XD Other fall on same level, subsequent encounter; Z87.11 Personal history of peptic ulcer disease; Z88.5 Allergy status to narcotic agent
CPT/HCPCS: 36415; 70450-TC; 71045-TC-FY; 73110-TC-LT-FY; 73130-TC-LT-FY; 80048; 80053; 81003; 82465; 82550; 82962; 83718; 83721; 83735; 84443; 84478; 84484; 85025; 85610; 85730; 86850; 86900; 86901; 87086; 93005; 93010; 99285-25; G0378

== ENCOUNTER 2021-11-28 22:32 | Inpatient (IN) | payer OTHER ==
[2021-11-28] MEDS ORDERED: SODIUM CHLORIDE 1,000 ML IV STA (23:57)
[2021-11-28] MEDS ORDERED: METOCLOPRAMIDE HCL INJECTION 10 MG/2 ML VIAL IVPUSH ONE (23:57)
[2021-11-28] MEDS ORDERED: ACETAMINOPHEN 1000 MG/100 ML BAG IVPB ONE (23:57)
[2021-11-29] MEDS ORDERED: METOCLOPRAMIDE HCL INJECTION 10 MG/2 ML VIAL ONE (00:18)
[2021-11-29] MEDS ORDERED: ACETAMINOPHEN INJECTION 100 ML IVPB ONE (00:18)
[2021-11-29 01:19] LABS: CALCIUM 8.7 mg/dL (8.5-10.1)
[2021-11-29 01:20] LABS: ALBUMIN 3.6 g/dl (3.4-5.0); BLOOD UREA NITROGEN 24.3 mg/dL (7-18); INR 1.03 (0.83-1.09); MAGNESIUM 2.1 mg/dL (1.8-2.4); PROTHROMBIN TIME (PATIENT) 11.9 SEC (9.7-13.0)
[2021-11-29 01:23] LABS: ACTIVATED PTT 30.3 SECONDS (25.2-36.5)
[2021-11-29 01:24] LABS: BILIRUBIN,TOTAL 0.3 mg/dL (0.2-1)
[2021-11-29 01:32] LABS: BASO % 0.4 % (0-2.0); HEMATOCRIT 41.4 % (32.4-45.2); HEMOGLOBIN 13.7 GM/dL (10.7-15.3); LYMPH % 8.8 % (8-40); MCH 29.7 pg (25.7-33.7); MCHC 33.1 g/dl (32.0-36.0); MEAN CELL VOLUME 89.8 fl (80-96); MEAN PLT VOLUME 9.3 fl (7.5-11.1); MONO % 6.6 % (3.8-10.2); NEUT % 83.2 % (42.8-82.8); PLATELET COUNT 220 10^3/uL (134-434); RBC 4.61 M/mm3 (3.60-5.2); RDW 14.6 % (11.6-15.6); WHITE BLOOD COUNT 12.1 K/mm3 (4.0-10.0)
[2021-11-29 02:00] LABS: EPI CELLS 2 /uL (0-25.1); HYALINE CASTS 0 /uL (0-3.1); URINE APPEARANCE CLEAR; URINE BACTERIA 38 /uL (0-1359); URINE BILIRUBIN NEGATIVE (NEGATIVE); URINE COLOR YELLOW; URINE GLUCOSE (UA) NEGATIVE (NEGATIVE); URINE KETONE NEGATIVE (NEGATIVE); URINE LEUK ESTERASE TRACE (NEGATIVE); URINE NITRITE NEGATIVE (NEGATIVE); URINE PROTEIN NEGATIVE (NEGATIVE); URINE RBC 20 /uL (0-23.9); URINE UROBILINOGEN 0.2 mg/dL (0.2-1.0); URINE WBC 45 /uL (0-25.8)
[2021-11-29] MEDS ORDERED: ACETAMINOPHEN 1000 MG/100 ML BAG IVPB PRN (06:30)
[2021-11-29] MEDS ORDERED: amLODIPine BESYLATE 5 MG TABLET (FP) ONE (09:53)
[2021-11-29] MEDS ORDERED: PANTOPRAZOLE SODIUM 40 MG VIAL ONE (09:54)
[2021-11-29] MEDS ORDERED: RAMIPRIL 5 MG CAPSULE ONE (09:54)
[2021-11-29] MEDS ORDERED: HEPARIN NA (PORCINE) 5,000 UNITS/ML 1ML VIAL ONE ×2 (09:54→23:28)
[2021-11-29] MEDS ORDERED: PANTOPRAZOLE SODIUM 40 MG VIAL IVPUSH SCH (10:00)
[2021-11-29] MEDS: HEPARIN NA (PORCINE) 5,000 UNITS/ML 1ML VIAL SQ SCH ×2 (10:40→23:44)
[2021-11-29] MEDS: RAMIPRIL 5 MG CAPSULE PO SCH (10:45)
[2021-11-29] MEDS: amLODIPine BESYLATE 5 MG TABLET (FP) PO SCH (10:45)
[2021-11-29] MEDS: D5-1/2NS+20 MEQ KCL - 20 MEQ/1,000 ML INFUS.BAG IV SCH (17:53)
[2021-11-29] MEDS: methylPREDNISolone NA SUCC 40 MG/1 ML VIAL IVPUSH SCH (18:55)
[2021-11-29] MEDS ORDERED: methylPREDNISolone NA SUCC 125 MG/2 ML VIAL ONE (19:00)
[2021-11-29] MEDS ORDERED: ATORVASTATIN CA 10 MG TABLET (FP) ONE (23:39)
[2021-11-29] MEDS: ATORVASTATIN CA 10 MG TABLET (FP) PO SCH (23:44)
[2021-11-30 05:20] VITALS: BMI 18.5
[2021-11-30] MEDS ORDERED: DEXTROSE 5%-WATER - 50 ML IVPB ONE (08:27)
[2021-11-30] MEDS ORDERED: cefTRIAXone SODIUM 1 GM VIAL ONE (08:27)
[2021-11-30 09:16] LABS: BASO % 0.2 % (0-2.0); HEMATOCRIT 38.5 % (32.4-45.2); HEMOGLOBIN 12.8 GM/dL (10.7-15.3); LYMPH % 11.5 % (8-40); MCH 29.6 pg (25.7-33.7); MCHC 33.1 g/dl (32.0-36.0); MEAN CELL VOLUME 89.6 fl (80-96); MEAN PLT VOLUME 7.9 fl (7.5-11.1); MONO % 4.7 % (3.8-10.2); NEUT % 83.6 % (42.8-82.8); PLATELET COUNT 208 10^3/uL (134-434); RDW 14.6 % (11.6-15.6); WHITE BLOOD COUNT 5.7 K/mm3 (4.0-10.0)
[2021-11-30 09:38] LABS: ALBUMIN 3.3 g/dl (3.4-5.0); BLOOD UREA NITROGEN 12.1 mg/dL (7-18)
[2021-11-30 09:42] LABS: CREATININE 0.9 mg/dL (0.55-1.3)
[2021-11-30 09:44] LABS: BILIRUBIN,TOTAL 0.5 mg/dL (0.2-1); TOT PROT 6.7 g/dl (6.4-8.2)
[2021-11-30] MEDS: RAMIPRIL 5 MG CAPSULE PO SCH ×2 (10:00→10:37)
[2021-11-30] MEDS ORDERED: MAG HYDROX/AL HYDROX/SIMETH 30 ML UNIT-DOSE CUP PO PRN (10:15)
[2021-11-30] MEDS: amLODIPine BESYLATE 5 MG TABLET (FP) PO SCH (10:37)
[2021-11-30] MEDS: methylPREDNISolone NA SUCC 40 MG/1 ML VIAL IVPUSH SCH ×3 (10:37→23:38)
[2021-11-30] MEDS: HEPARIN NA (PORCINE) 5,000 UNITS/ML 1ML VIAL SQ SCH ×2 (10:42→22:02)
[2021-11-30] MEDS: CEFTRIAXONE 1 GM in DEXTROSE 5%-WATER - 50 ML IVPB SCH (10:42)
[2021-11-30] MEDS ORDERED: RAMIPRIL 1.25 MG CAPSULE PO SCH (12:30)
[2021-11-30] MEDS: BRIMONIDINE TARTRATE 0.2% OPHTHALMIC 5 ML BOTTLE OD SCH ×3 (12:41→23:37)
[2021-11-30] MEDS ORDERED: ACETAMINOPHEN 325 MG TABLET (FP) PO PRN (15:48)
[2021-11-30] MEDS ORDERED: KCL 10 MEQ IVPB 10 MEQ/100 ML INFUS.BAG IVPB SCH (18:15)
[2021-11-30] MEDS: D5-1/2NS+20 MEQ KCL - 20 MEQ/1,000 ML INFUS.BAG IV SCH (18:35)
[2021-11-30] MEDS: ATORVASTATIN CA 10 MG TABLET (FP) PO SCH (22:04)
[2021-12-01] MEDS: methylPREDNISolone NA SUCC 40 MG/1 ML VIAL IVPUSH SCH ×2 (01:52→21:19)
[2021-12-01 07:53] LABS: CALCIUM 8.6 mg/dL (8.5-10.1)
[2021-12-01 07:54] LABS: BLOOD UREA NITROGEN 12.9 mg/dL (7-18)
[2021-12-01 07:57] LABS: CREATININE 0.9 mg/dL (0.55-1.3)
[2021-12-01] MEDS ORDERED: cefTRIAXone SODIUM 1 GM VIAL ONE (09:51)
[2021-12-01] MEDS ORDERED: DEXTROSE 5%-WATER - 50 ML IVPB ONE (09:51)
[2021-12-01] MEDS ORDERED: methylPREDNISolone NA SUCC 40 MG/1 ML VIAL IVPUSH SCH (10:00)
[2021-12-01] MEDS: CEFTRIAXONE 1 GM in DEXTROSE 5%-WATER - 50 ML IVPB SCH (10:14)
[2021-12-01] MEDS: HEPARIN NA (PORCINE) 5,000 UNITS/ML 1ML VIAL SQ SCH ×2 (10:24→21:18)
[2021-12-01] MEDS: BRIMONIDINE TARTRATE 0.2% OPHTHALMIC 5 ML BOTTLE OD SCH ×2 (10:25→21:18)
[2021-12-01] MEDS: amLODIPine BESYLATE 5 MG TABLET (FP) PO SCH (10:25)
[2021-12-01] MEDS ORDERED: POLYETHYLENE GLYCOL (HEALTHYLAX) 3350 17 GM PACKET PO SCH (14:00)
[2021-12-01] MEDS: D5-1/2NS+20 MEQ KCL - 20 MEQ/1,000 ML INFUS.BAG IV SCH ×2 (20:07→21:18)
[2021-12-01] MEDS ORDERED: MAG HYDROX/AL HYDROX/SIMETH 30 ML UNIT-DOSE CUP PO PRN (21:07)
[2021-12-01] MEDS ORDERED: ACETAMINOPHEN 325 MG TABLET (FP) PO PRN (21:07)
[2021-12-01] MEDS: ATORVASTATIN CA 10 MG TABLET (FP) PO SCH ×2 (21:18→21:22)
[2021-12-01] MEDS: POLYETHYLENE GLYCOL (HEALTHYLAX) 3350 17 GM PACKET PO SCH (21:18)
[2021-12-02] MEDS: POLYETHYLENE GLYCOL (HEALTHYLAX) 3350 17 GM PACKET PO SCH ×3 (06:13→20:59)
[2021-12-02] MEDS ORDERED: cefTRIAXone SODIUM 1 GM VIAL ONE (09:20)
[2021-12-02] MEDS ORDERED: DEXTROSE 5%-WATER - 50 ML IVPB ONE (09:20)
[2021-12-02] MEDS: CEFTRIAXONE 1 GM in DEXTROSE 5%-WATER - 50 ML IVPB SCH (09:32)
[2021-12-02] MEDS: HEPARIN NA (PORCINE) 5,000 UNITS/ML 1ML VIAL SQ SCH ×3 (09:33→20:59)
[2021-12-02] MEDS: methylPREDNISolone NA SUCC 40 MG/1 ML VIAL IVPUSH SCH ×2 (09:33→20:59)
[2021-12-02] MEDS: amLODIPine BESYLATE 5 MG TABLET (FP) PO SCH ×2 (09:33→10:39)
[2021-12-02] MEDS: PANTOPRAZOLE 40 MG TABLET PO SCH (09:33)
[2021-12-02] MEDS: BRIMONIDINE TARTRATE 0.2% OPHTHALMIC 5 ML BOTTLE OD SCH ×2 (09:35→20:59)
[2021-12-02] MEDS ORDERED: PANTOPRAZOLE 40 MG TABLET PO SCH (10:00)
[2021-12-02] MEDS: RAMIPRIL 1.25 MG CAPSULE PO SCH (10:19)
[2021-12-02] MEDS: D5-1/2NS+20 MEQ KCL - 20 MEQ/1,000 ML INFUS.BAG IV SCH ×2 (21:00→22:25)
[2021-12-02] MEDS: ATORVASTATIN CA 10 MG TABLET (FP) PO SCH (21:00)
[2021-12-02] MEDS ORDERED: amLODIPine BESYLATE 5 MG TABLET (FP) PO ONE (21:59)
[2021-12-03] MEDS: POLYETHYLENE GLYCOL (HEALTHYLAX) 3350 17 GM PACKET PO SCH ×3 (05:43→21:44)
[2021-12-03 08:15] LABS: HEMATOCRIT 37.1 % (32.4-45.2); HEMOGLOBIN 12.5 GM/dL (10.7-15.3); MCH 29.8 pg (25.7-33.7); MCHC 33.6 g/dl (32.0-36.0); MEAN CELL VOLUME 88.6 fl (80-96); PLATELET COUNT 217 10^3/uL (134-434); RBC 4.19 M/mm3 (3.60-5.2); RDW 14.7 % (11.6-15.6); WHITE BLOOD COUNT 8.4 K/mm3 (4.0-10.0)
[2021-12-03 08:40] LABS: CALCIUM 8.4 mg/dL (8.5-10.1); MAGNESIUM 2.3 mg/dL (1.8-2.4)
[2021-12-03 08:43] LABS: CREATININE 0.8 mg/dL (0.55-1.3)
[2021-12-03 08:45] LABS: BILIRUBIN,TOTAL 0.5 mg/dL (0.2-1); TOT PROT 6.2 g/dl (6.4-8.2)
[2021-12-03] MEDS: methylPREDNISolone NA SUCC 40 MG/1 ML VIAL IVPUSH SCH ×2 (09:11→21:43)
[2021-12-03] MEDS: RAMIPRIL 1.25 MG CAPSULE PO SCH (09:11)
[2021-12-03] MEDS: HEPARIN NA (PORCINE) 5,000 UNITS/ML 1ML VIAL SQ SCH ×2 (09:12→21:43)
[2021-12-03] MEDS: amLODIPine BESYLATE 5 MG TABLET (FP) PO SCH (09:12)
[2021-12-03] MEDS: BRIMONIDINE TARTRATE 0.2% OPHTHALMIC 5 ML BOTTLE OD SCH ×2 (09:12→21:46)
[2021-12-03] MEDS: PANTOPRAZOLE 40 MG TABLET PO SCH (09:12)
[2021-12-03] MEDS: CEFTRIAXONE 1 GM in DEXTROSE 5%-WATER - 50 ML IVPB SCH (11:39)
[2021-12-03] MEDS: ATORVASTATIN CA 10 MG TABLET (FP) PO SCH (21:44)
[2021-12-03] MEDS: D5-1/2NS+20 MEQ KCL - 20 MEQ/1,000 ML INFUS.BAG IV SCH (21:44)
[2021-12-04] MEDS: POLYETHYLENE GLYCOL (HEALTHYLAX) 3350 17 GM PACKET PO SCH ×2 (05:05→14:27)
[2021-12-04] MEDS ORDERED: cefTRIAXone SODIUM 1 GM VIAL ONE (09:10)
[2021-12-04] MEDS ORDERED: DEXTROSE 5%-WATER - 50 ML IVPB ONE (09:11)
[2021-12-04] MEDS: CEFTRIAXONE 1 GM in DEXTROSE 5%-WATER - 50 ML IVPB SCH (09:35)
[2021-12-04] MEDS: methylPREDNISolone NA SUCC 40 MG/1 ML VIAL IVPUSH SCH (09:36)
[2021-12-04] MEDS: PANTOPRAZOLE 40 MG TABLET PO SCH (09:36)
[2021-12-04] MEDS: HEPARIN NA (PORCINE) 5,000 UNITS/ML 1ML VIAL SQ SCH ×2 (09:36→09:51)
[2021-12-04] MEDS: amLODIPine BESYLATE 5 MG TABLET (FP) PO SCH (09:36)
[2021-12-04] MEDS: RAMIPRIL 1.25 MG CAPSULE PO SCH (09:37)
[2021-12-04] MEDS: BRIMONIDINE TARTRATE 0.2% OPHTHALMIC 5 ML BOTTLE OD SCH (09:38)
[2021-12-04 15:37] VITALS: BP 150/79; PULSE 74; TEMP 97.8
== END 2021-12-04 16:00 | disposition home or self-care (01) | DRG 395 ==
LOC: JER 22:32 → JERBED 11-29 04:01 → J4W 11-30 04:46 → J7W 12-01 17:43
PROVIDERS: ADMIT Internal Medicine; ATTEND Family Medicine
DX: K55.9 Vascular disorder of intestine, unspecified (principal); I44.7 Left bundle-branch block, unspecified; D64.9 Anemia, unspecified; K21.9 Gastro-esophageal reflux disease without esophagitis; I10 Essential (primary) hypertension; M31.6 Other giant cell arteritis; M35.3 Polymyalgia rheumatica; R55 Syncope and collapse; K56.41 Fecal impaction
CPT/HCPCS: 36415; 70450-TC; 74177-TC; 80048; 80053; 81003; 82550; 82962; 83605; 83735; 84484; 85025; 85027; 85610; 85730; 86850; 86900; 86901; 87086; 93005; 93010; 97116-GP; 97161-GP; 99285-25; C9803; J1644; Q9967; U0003; U0005

== ENCOUNTER 2022-06-14 06:44 | Inpatient (IN) | payer OTHER ==
[2022-06-14 07:16] VITALS: BMI 19.3
[2022-06-14] MEDS ORDERED: SODIUM CHLORIDE 0.9% 500 ML INFUS.BAG IV ONE (07:45)
[2022-06-14] MEDS ORDERED: ACETAMINOPHEN 1000 MG/100 ML BAG IVPB ONE (07:45)
[2022-06-14] MEDS ORDERED: FAMOTIDINE 20 MG/50 ML IVPB 20 MG/50 ML MG IVPB ONE ×2 (07:45→08:21)
[2022-06-14] MEDS ORDERED: ONDANSETRON 4 MG/2 ML VIAL IVPUSH ONE (07:45)
[2022-06-14] MEDS ORDERED: ACETAMINOPHEN INJECTION 100 ML IVPB ONE (08:21)
[2022-06-14] MEDS ORDERED: ONDANSETRON 4 MG/2 ML VIAL ONE (08:21)
[2022-06-14 09:19] LABS: BASO % 0.7 % (0-2.0); EOS % 0.4 % (0-4.5); HEMATOCRIT 42.4 % (32.4-45.2); LYMPH % 37.6 % (8-40); MCH 29.1 pg (25.7-33.7); MEAN CELL VOLUME 88.2 fl (80-96); MEAN PLT VOLUME 8.5 fl (7.5-11.1); MONO % 14.5 % (3.8-10.2); NEUT % 46.8 % (42.8-82.8); PLATELET COUNT 159 10^3/uL (134-434); RBC 4.81 M/mm3 (3.60-5.2); WHITE BLOOD COUNT 2.7 K/mm3 (4.0-10.0)
[2022-06-14 09:24] LABS: VENOUS BASE EXCESS 4.7 mmol/L (-2-2); VENOUS O2 SATURATION 22.2 % (70-80); VENOUS PCO2 52.4 mmHg (38-52); VENOUS PH 7.391 (7.310-7.410)
[2022-06-14 09:37] LABS: ALBUMIN 3.4 g/dl (3.4-5.0); BLOOD UREA NITROGEN 15.7 mg/dL (7-18); CALCIUM 8.4 mg/dL (8.5-10.1); MAGNESIUM 2.1 mg/dL (1.8-2.4)
[2022-06-14 09:41] LABS: CREATININE 0.9 mg/dL (0.55-1.3)
[2022-06-14 09:43] LABS: BILIRUBIN,TOTAL 0.3 mg/dL (0.2-1); TOT PROT 6.6 g/dl (6.4-8.2)
[2022-06-14 12:35] LABS: URINE APPEARANCE CLEAR; URINE BILIRUBIN NEGATIVE (NEGATIVE); URINE COLOR YELLOW; URINE GLUCOSE (UA) NEGATIVE (NEGATIVE); URINE KETONE NEGATIVE (NEGATIVE); URINE LEUK ESTERASE NEGATIVE (NEGATIVE); URINE NITRITE NEGATIVE (NEGATIVE); URINE PROTEIN NEGATIVE (NEGATIVE); URINE UROBILINOGEN 0.2 mg/dL (0.2-1.0)
[2022-06-14] MEDS ORDERED: KETOROLAC TROMETHAMINE 15 MG/ML VIAL IVPUSH ONE (12:55)
[2022-06-14] MEDS ORDERED: KETOROLAC TROMETHAMINE 15 MG/ML VIAL ONE (13:13)
[2022-06-14] MEDS ORDERED: DEXAMETHASONE SOD PHOSPHATE 10 MG/1 ML VIAL IVPUSH ONE (14:39)
[2022-06-14] MEDS ORDERED: DEXAMETHASONE SOD PHOSPHATE 10 MG/1 ML VIAL ONE (14:45)
[2022-06-14] MEDS: SODIUM CHLORIDE 1,000 ML IV SCH (15:05)
[2022-06-14] MEDS ORDERED: REMDESIVIR 200 MG in SODIUM CHLORIDE 250 ML IVPB ONE (15:16)
[2022-06-14] MEDS ORDERED: hydrALAZINE HCL 20 MG/ML VIAL IVPB ONE (22:03)
[2022-06-14] MEDS: ATORVASTATIN CA 10 MG TABLET (FP) PO SCH ×2 (22:23→22:39)
[2022-06-15] MEDS: amLODIPine BESYLATE 5 MG TABLET (FP) PO SCH ×2 (00:51→09:22)
[2022-06-15] MEDS: RAMIPRIL 1.25 MG CAPSULE PO SCH ×3 (00:51→09:22)
[2022-06-15 07:48] LABS: BASO % 0.9 % (0-2.0); EOS % 0.1 % (0-4.5); HEMATOCRIT 39.7 % (32.4-45.2); HEMOGLOBIN 13.2 GM/dL (10.7-15.3); LYMPH % 30.2 % (8-40); MCH 28.9 pg (25.7-33.7); MCHC 33.2 g/dl (32.0-36.0); MEAN PLT VOLUME 9.7 fl (7.5-11.1); MONO % 12.3 % (3.8-10.2); NEUT % 56.5 % (42.8-82.8); PLATELET COUNT 159 10^3/uL (134-434); RBC 4.57 M/mm3 (3.60-5.2); RDW 14.2 % (11.6-15.6); WHITE BLOOD COUNT 2.4 K/mm3 (4.0-10.0)
[2022-06-15 08:00] LABS: ALBUMIN 3.2 g/dl (3.4-5.0); CALCIUM 8.3 mg/dL (8.5-10.1); MAGNESIUM 1.8 mg/dL (1.8-2.4)
[2022-06-15 08:01] LABS: BLOOD UREA NITROGEN 14.5 mg/dL (7-18)
[2022-06-15 08:04] LABS: CREATININE 0.6 mg/dL (0.55-1.3); PHOSPHOROUS 2.3 mg/dL (2.5-4.9)
[2022-06-15 08:05] LABS: BILIRUBIN,TOTAL 0.4 mg/dL (0.2-1); TOT PROT 6.5 g/dl (6.4-8.2)
[2022-06-15] MEDS: ENOXAPARIN NA (PORCINE) 40 MG/0.4 ML DISP.SYRIN SQ SCH ×2 (09:22→10:04)
[2022-06-15] MEDS: DEXAMETHASONE SOD PHOSPHATE 4 MG/1 ML VIAL IVPUSH SCH (09:22)
[2022-06-15] MEDS ORDERED: RAMIPRIL 1.25 MG CAPSULE PO SCH (10:00)
[2022-06-15] MEDS ORDERED: amLODIPine BESYLATE 5 MG TABLET (FP) PO SCH (10:00)
[2022-06-15] MEDS: PANTOPRAZOLE 40 MG TABLET PO SCH (10:44)
[2022-06-15] MEDS ORDERED: REMDESIVIR 200 MG in SODIUM CHLORIDE 250 ML IVPB ONE (11:53)
[2022-06-15] MEDS ORDERED: REMDESIVIR 100 MG in SODIUM CHLORIDE 250 ML IVPB SCH (12:00)
[2022-06-15] MEDS ORDERED: DICYCLOMINE HCL 10 MG CAPSULE PO PRN (16:31)
[2022-06-15] MEDS: SODIUM CHLORIDE 1,000 ML IV SCH (16:37)
[2022-06-15] MEDS ORDERED: amLODIPine BESYLATE 5 MG TABLET (FP) PO ONE (18:39)
[2022-06-15] MEDS: ATORVASTATIN CA 10 MG TABLET (FP) PO SCH (21:26)
[2022-06-16 09:07] VITALS: RESP 18
[2022-06-16] MEDS: DEXAMETHASONE SOD PHOSPHATE 4 MG/1 ML VIAL IVPUSH SCH (09:07)
[2022-06-16] MEDS: RAMIPRIL 1.25 MG CAPSULE PO SCH (09:07)
[2022-06-16] MEDS: PANTOPRAZOLE 40 MG TABLET PO SCH (09:08)
[2022-06-16] MEDS: amLODIPine BESYLATE 5 MG TABLET (FP) PO SCH (09:08)
[2022-06-16] MEDS: ENOXAPARIN NA (PORCINE) 40 MG/0.4 ML DISP.SYRIN SQ SCH (09:08)
[2022-06-16 09:38] LABS: BASO % 0.2 % (0-2.0); EOS % 0.1 % (0-4.5); HEMATOCRIT 40.1 % (32.4-45.2); HEMOGLOBIN 13.5 GM/dL (10.7-15.3); LYMPH % 23.7 % (8-40); MCH 29.6 pg (25.7-33.7); MCHC 33.6 g/dl (32.0-36.0); MEAN PLT VOLUME 9.4 fl (7.5-11.1); MONO % 10.4 % (3.8-10.2); NEUT % 65.6 % (42.8-82.8); PLATELET COUNT 177 10^3/uL (134-434); RBC 4.56 M/mm3 (3.60-5.2); RDW 13.9 % (11.6-15.6); WHITE BLOOD COUNT 5.1 K/mm3 (4.0-10.0)
[2022-06-16 10:18] LABS: ALBUMIN 3.3 g/dl (3.4-5.0); CALCIUM 8.6 mg/dL (8.5-10.1)
[2022-06-16 10:19] LABS: BLOOD UREA NITROGEN 18.4 mg/dL (7-18)
[2022-06-16 10:21] LABS: CREATININE 0.8 mg/dL (0.55-1.3)
[2022-06-16 10:23] LABS: BILIRUBIN,TOTAL 0.4 mg/dL (0.2-1); TOT PROT 6.4 g/dl (6.4-8.2)
[2022-06-16 10:26] LABS: PHOSPHOROUS 3.1 mg/dL (2.5-4.9)
[2022-06-16 15:02] VITALS: BP 147/75; PULSE 65; TEMP 98.8
== END 2022-06-16 16:00 | disposition home or self-care (01) | DRG 177 ==
LOC: JER 06:44 → JERBED 14:02 → J4W 21:12
PROVIDERS: ADMIT Internal Medicine; ATTEND Internal Medicine
PROC: XW033E5 Introduction of Remdesivir Anti-infective into Peripheral Vein, Percutaneous Approach, New Technology Group 5 (ICD-10-PCS; principal; 2022-06-14)
DX: U07.1 COVID-19 (principal); J12.82 Pneumonia due to coronavirus disease 2019; J96.01 Acute respiratory failure with hypoxia; E87.1 Hypo-osmolality and hyponatremia; J98.11 Atelectasis; I10 Essential (primary) hypertension; M35.3 Polymyalgia rheumatica; M31.6 Other giant cell arteritis; Z28.310 Unvaccinated for COVID-19
CPT/HCPCS: 0241U-QW; 36415; 71045-TC-FY; 71250-TC; 71275-TC; 74174-TC; 74176-TC; 80053; 81003; 82803; 83605; 83690; 83735; 84100; 84484; 85025; 86140; 86850; 86900; 86901; 87086; 93005; 93010; 94761; 99285-25; J1100; Q9967